=== PATIENT | female | born 1970 | race Two or more races ===

== ENCOUNTER 2020-12-10 09:41 | Outpatient (REF) | payer OTHER, SELFPAY ==
[2020-12-10 10:35] LABS: MANUAL DIFF FLAG NO
[2020-12-10 10:38] LABS: Basophils Absolute Auto 0.1 X10*3/uL (0.0-0.2); Basophils Percent Auto 0.6 % (0-2); Eosinophils Absolute Auto 0.2 X10*3/uL (0.0-0.4); Eosinophils Percent Auto 1.2 % (0-4); Hematocrit 44.5 % (37-47); Hemoglobin 15.3 g/dl (12.0-16.0); Imm Gran Abs Auto 0.06 X10*3/uL (0.00-0.03); Imm Gran Pct Auto 0.5 % (0.0-0.4); Lymphocytes Absolute Auto 3.4 X10*3/uL (1.2-4.9); Lymphocytes Percent Auto 27.6 % (20-40); Mean Corpuscular HGB Conc 34.4 g/dl (31.0-35.0); Mean Corpuscular Hemoglobin 33.3 pg (27.0-33.0); Mean Corpuscular Volume 96.9 fL (80-98); Mean Platelet Volume 9.5 fL (9.4-12.3); Monocytes Absolute Auto 0.6 X10*3/uL (0.1-1.2); Monocytes Percent Auto 5.2 % (2-11); Neutrophils Absolute Auto 8.1 X10*3/uL (2.0-8.3); Neutrophils Percent Auto 64.9 % (45-73); Platelet Count 300 X10*3/uL (160-400); Red Blood Count 4.59 X10*6/uL (4.20-5.50); Red Cell Distribution Width 12.8 % (11.0-16.0); White Blood Count 12.4 X10*3/uL (4.8-10.8)
[2020-12-10 11:21] LABS: Alanine Aminotransferase 15 U/L (0-31); Albumin Level 4.3 g/dL (3.5-5.0); Alkaline Phosphatase 91 U/L (39-117); Anion Gap 14 (12-20); Aspartate Amino Transferase 18 U/L (5-31); Bilirubin Total 0.6 mg/dL (0.0-1.0); Blood Urea Nitrogen 12 mg/dL (9-16); Calcium 8.7 mg/dL (8.4-10.2); Carbon Dioxide 25 mmol/L (22-29); Chloride 105 mmol/L (96-108); Cholesterol 283 mg/dL; Estimated Glomerular Filt Rate > 60; Glucose Fasting 90 mg/dL (60-99); HDL Cholesterol 58 mg/dL; LDL Cholesterol Calculated 214 mg/dl; Sodium 140 mmol/L (135-145); Total Protein 7.6 g/dL (6.5-8.0); Triglycerides 59 mg/dL
[2020-12-10 11:34] LABS: Thyroid Stimulating Hormone 2.88 uIU/mL (0.32-4.0)
== END 2020-12-10 09:42 | disposition home or self-care (01) ==
LOC: HO.LAB 09:41
PROVIDERS: PCP Internal Medicine; Visit Provider Internal Medicine
DX: Z00.00 Encounter for general adult medical examination without abnormal findings (principal); E03.9 Hypothyroidism, unspecified; E11.9 Type 2 diabetes mellitus without complications
CPT/HCPCS: 36415; 80053; 80061; 84443; 85025

== ENCOUNTER 2021-04-07 14:34 | Outpatient (REF) | payer OTHER, SELFPAY ==
--- NOTE | ~2021-04-07 | XR_ITS ---
EXAMINATION: XR LUMBAR SPINE XR LEFT KNEE CLINICAL INFORMATION: Spondylosis without myelopathy or radiculopathy. COMPARISON: Lumbar spine 01/27/2016. TECHNIQUE: 4 views lumbar spine, 3 views knee. FINDINGS: Lumbar Spine: Again seen are mild degenerative changes present throughout the lumbar spine with [id number] changes at L5-S1 with disc space narrowing and sclerosis. At other levels, there is milder disc space narrowing with some associated endplate changes. When comparison is made to the 2016 study, there has been no significant interval change. Knee: Tricompartmental degenerative changes are present which are worse in the lateral compartment with sclerosis and some osteophyte formation. There is mild narrowing medially and some mild osteophytes present at the superior aspect of the patella posteriorly. XR/XR lumbar spine 2-3V IMPRESSION: Degenerative changes lumbar spine, stable when compared to 2016 and mild tricompartmental degenerative changes knee.
--- NOTE | ~2021-04-07 | XR_ITS ---
EXAMINATION: XR LUMBAR SPINE XR LEFT KNEE CLINICAL INFORMATION: Spondylosis without myelopathy or radiculopathy. COMPARISON: Lumbar spine 01/27/2016. TECHNIQUE: 4 views lumbar spine, 3 views knee. FINDINGS: Lumbar Spine: Again seen are mild degenerative changes present throughout the lumbar spine with [id number] changes at L5-S1 with disc space narrowing and sclerosis. At other levels, there is milder disc space narrowing with some associated endplate changes. When comparison is made to the 2016 study, there has been no significant interval change. Knee: Tricompartmental degenerative changes are present which are worse in the lateral compartment with sclerosis and some osteophyte formation. There is mild narrowing medially and some mild osteophytes present at the superior aspect of the patella posteriorly. XR/XR knee LT 3V IMPRESSION: Degenerative changes lumbar spine, stable when compared to 2016 and mild tricompartmental degenerative changes knee.
[2021-04-07 16:58] LABS: Alanine Aminotransferase 14 U/L (0-31); Albumin Level 4.4 g/dL (3.5-5.0); Alkaline Phosphatase 93 U/L (39-117); Anion Gap 12 (12-20); Aspartate Amino Transferase 20 U/L (5-31); Bilirubin Total 0.7 mg/dL (0.0-1.0); Blood Urea Nitrogen 9 mg/dL (9-16); Calcium 9.8 mg/dL (8.4-10.2); Carbon Dioxide 25 mmol/L (22-29); Chloride 108 mmol/L (96-108); Estimated Glomerular Filt Rate > 60; Glucose Random 90 mg/dL (60-115); Potassium 4.1 mmol/L (3.3-5.1); Sodium 141 mmol/L (135-145); Total Protein 7.9 g/dL (6.5-8.0)
== END 2021-04-07 14:35 | disposition home or self-care (01) ==
LOC: HO.XRAY 14:34
PROVIDERS: PCP Internal Medicine; Visit Provider Student in an Organized Health Care Education/Training Program
DX: M25.562 Pain in left knee (principal); M47.816 Spondylosis without myelopathy or radiculopathy, lumbar region; M25.50 Pain in unspecified joint; F17.210 Nicotine dependence, cigarettes, uncomplicated; I10 Essential (primary) hypertension; B07.0 Plantar wart; Z79.899 Other long term (current) drug therapy
CPT/HCPCS: 36415; 72100; 73562; 80053; 99212

== ENCOUNTER 2021-04-09 14:53 | Emergency (ER) | payer OTHER, SELFPAY ==
[2021-04-09 15:41] VITALS: BP 188/96; PULSE 73; RESP 18; TEMP 36.9; O2SAT 98; BMI 27.4
== END 2021-04-09 19:58 | disposition left against medical advice (07) ==
PROVIDERS: Emergency Provider Emergency Medicine
DX: R51.9 Headache, unspecified (principal); I10 Essential (primary) hypertension
CPT/HCPCS: 99281; 99282

== ENCOUNTER 2021-12-08 07:03 | Inpatient (IN) | payer OTHER, SELFPAY ==
[2021-12-08] VITALS (15 sets, daily range): BP systolic 105–187; BP diastolic 54–91; PULSE 77–94; RESP 15–20; TEMP 36.7–37.1; O2SAT 83–99; BMI 30.7
--- NOTE | ~2021-12-08 | CT_ITS ---
EXAMINATION: CT ANGIOGRAM OF THE CHEST WITH AND WITHOUT CONTRAST (CT PULMONARY ANGIOGRAM FOR PE) CLINICAL INFORMATION: Reason for Exam hemoptysis, hypoxic, to evaluate for pulmonary emb COMPARISON: Chest x-ray December 2021 and March 29, 2019 TECHNIQUE: Prior to contrast administration, noncontrast localization images were obtained. Subsequently, multidetector volumetric imaging was performed from the thoracic inlet to below the diaphragms following the administration of 65 mL Omnipaque 350 intravenous contrast. No contrast reaction reported Sagittal, coronal, and MIP oblique sagittal reformatted images were obtained on the CT workstation, uploaded to PACS, and reviewed. This CT examination was performed using dose optimization techniques as appropriate, variously including the following: *Automated exposure control *Adjustment of mA and/or kV according to patient size (this includes techniques or standardized protocols for targeted exams where dose is matched to indication/reason for exam; i.e. extremities or head) *Use of iterative reconstruction technique Total exam dose-length product 169 mGy-cm FINDINGS: QUALITY OF STUDY/CONTRAST BOLUS: Satisfactory. PULMONARY ARTERIES: No central or segmental pulmonary emboli. THORACIC AORTA: No aneurysm or dissection. LUNG: The central airways are patent. No bronchial wall thickening is seen. No bronchiectasis. There is evidence of mild paraseptal and centrilobular emphysema about the upper lobes bilaterally. There is some dependent bibasilar disease, right greater than left likely related to atelectasis. Discoid atelectasis is noted within the right middle lobe and lingula. No confluent pneumonitis is appreciated. There are a few sub-4 mm nodules present. There is a 4 mm subpleural noncalcified nodule seen within the right middle lobe on image 342 of [id number]. PLEURA: No significant pleural effusion. No pneumothorax. MEDIASTINUM: Heart upper limits of normal in size. No pericardial effusion. No missed on lymphadenopathy is appreciated. There is a small right hilar lymph node measuring 1 cm in short axis. Visualized thyroid gland unremarkable. No evidence of septal bowing or right heart strain. CHEST WALL/AXILLA: No axillary or internal mammary lymphadenopathy. OSSEOUS STRUCTURES: No acute or suspicious osseous abnormality. UPPER ABDOMEN: Pneumobilia present. No reflux of contrast into the hepatic veins to suggest elevated right heart pressures. CT/CT angio chest PE protocol IMPRESSION: No evidence of acute pulmonary artery embolus. No evidence of thoracic aortic aneurysm or dissection. Mild changes of centrilobular and paraseptal emphysema within the upper lobes bilaterally. Probable mild right hilar lymphadenopathy. VTE: negative
--- NOTE | ~2021-12-08 | XR_ITS ---
EXAMINATION: XR CHEST CLINICAL INFORMATION: Asthma. Suspected COVID COMPARISON: Previous chest x-ray most recent February 2019 TECHNIQUE: Frontal view of the chest was obtained. FINDINGS: The cardiac silhouette appears slightly enlarged and may be increased in size compared to prior exam. Hilar and mediastinal contours are unremarkable. There is bilateral perihilar subsegmental atelectasis. The lungs are otherwise clear. There is no pleural effusion or pneumothorax. Bony structures are unremarkable. XR/XR chest 1V IMPRESSION: Enlarged cardiac silhouette which may be increased from prior exams. Bilateral perihilar subsegmental atelectasis.
--- NOTE | ~2021-12-08 | US_ITS ---
EXAMINATION: US VENOUS ULTRASOUND WITH DOPPLER LOWER EXTREMITY, RIGHT CLINICAL INFORMATION: Swelling COMPARISON: Previous exam May 2020 TECHNIQUE: Ultrasound of the deep veins is performed from the hip to the calf with compression sonography and color and pulse Doppler assessment. Spectral analysis with color-flow imaging is performed. FINDINGS: There is normal venous compression and respiratory variation and augmented flow. The visualized common femoral vein, superficial femoral vein, profunda femoral vein, popliteal vein, and the trifurcation region shows no evidence of deep venous thrombosis. There is no significant popliteal fossa cyst. US/US venous duplex LE RT IMPRESSION: No DVT demonstrated in the right lower extremity.
--- NOTE | 2021-12-08 07:15 | ECG_ITS ---
Test Reason : SOB Blood Pressure : / mmHG Vent. Rate : 087 BPM Atrial Rate : 087 BPM P-R Int : 178 ms QRS Dur : 138 ms QT Int : 428 ms P-R-T Axes : 061 041 080 degrees QTc Int : 515 ms Normal sinus rhythm Left bundle branch block Abnormal ECG When compared with ECG of 29-MAR-2019 13:08, Left bundle branch block is now Present Referred By: La Vasquez Electronically Signed By:Brennan Barnett
--- NOTE | 2021-12-08 07:17 | ED.SOB ---
HPI - SOB/Dyspnea General Chief Complaint: Dyspnea Stated Complaint: ASTHMA,-VACC Time Seen by Provider: 12/08/21 07:10 Source: patient and EMS Mode of arrival: EMS Limitations: no limitations History of Present Illness HPI Narrative: Patient comes to the emergency room complaining 3 days of asthma exacerbation. Patient states that for the last 6 hours she has been using multiple nebulization treatments without relief. EMS was called, oxygen saturation 89% on room air. Patient received 125 mg of Solu-Medrol, 2 g of magnesium, DuoNebs. Patient is not vaccinated for COVID-19 Related Data Previous Rx's Medication Instructions Recorded albuterol sulfate 2.5 mg (3 mL) INHALATION Q4-6H PRN 03/18/21 #75 ml simvastatin 40 mg tablet 40 mg PO DAILY #90 tab 03/18/21 albuterol sulfate 90 mcg/actuation 2 puff PO Q6H PRN #18 g 04/24/21 aerosol inhaler (ProAir HFA) fluticasone propionate 44 2 puff INHALATION BID 30 Days 08/05/21 mcg/actuation HFA aerosol inhaler #10.6 g (Flovent HFA) lisinopril 10 mg tablet 10 mg PO DAILY 90 Days #90 tab 08/05/21 omeprazole 20 mg capsule,delayed 20 mg PO DAILY 90 Days #90 cap 08/05/21 release escitalopram oxalate 10 mg tablet 10 mg PO DAILY #90 tab 11/01/21 Allergies Allergy/AdvReac Type Severity Reaction Status Date / Time Penicillins Allergy Intermediate DIFFICULTY Verified 12/08/21 07:18 BREATHING Review of Systems Review of Systems: Constitutional : No Weight loss, No Fever, No Chills, No Night Sweats, No Fatigue, No Malaise ENT/Mouth : No Hearing loss, No Ear Pain, No Nasal Congestion, No Sinus Pain, No Hoarseness, No sore throat, No Rhinorrhea, No Swallowing Difficulty Eyes: No Eye Pain, No Swelling, No Redness, No Foreign Body, No Discharge, No Vision Changes Cardiovascular : No Chest Pain, No SOB, No Dyspnea on Exertion, No Orthopnea, No Edema, No Palpitations Respiratory : Complaining of dry cough, shortness of breath, wheezing Gastrointestinal : No Nausea, No Vomiting, No Diarrhea, No Constipation, No abdominal Pain, No Hematochezia, No Melena Genitourinary : no irregular bleeding, No Dysuria, No Urinary Frequency, No Hematuria, No Urinary Incontinence, No Urgency, No Flank Pain, No Urinary Flow Changes, No Hesitancy Musculoskeletal : No joint pain, No Myalgias, No Joint Swelling Skin : No Skin Lesions, No rash Neuro : No Weakness, No Numbness, No Paresthesias, No Loss of Consciousness, No Dizziness, No Headache Psych : No Anxiety/Panic, No Depression, No SI/HI/AH/VH, No Social Issues, Heme/Lymph: No Bruising, No Bleeding,No Lymphadenopathy Endocrine : No Polyuria, No Polydipsia, No Temperature Intolerance FOR[facility]LY [facility] Past Medical History Medical History Allergic rhinitis Arthritis Asthma Chronic GERD Essential hypertension Hypertension Lumbar spondylosis Moderate persistent asthma, uncomplicated Moderate recurrent major depression Pure hypercholesterolemia Surgical History Hx of cholecystectomy Hx of hysterectomy Hx of tubal ligation Family History Family History Father Heart attack Mother Ovarian cancer Family/Other Substance use disorder Mental health disorder Social History Social History (Updated 08/05/21 @ 08:58 by Lisa Zazueta MD) Housing: Apartment Alcohol intake: current Alcohol intake frequency: holidays/special occasions only Alcohol type: beer Patient Tobacco Use Status: Current everyday Tobacco user Tobacco use type: Cigarette Cigarettes Per Day: 10 e-Cigarette/Vaping Use: Never Used Second Hand Smoke Exposure: No Use of substances other than those prescribed or required for medical reasons: No Advance Directives: No Advance Directives Information Provided: No service: No Current occupational status: disabled Physical Exam Vital Signs: Vital Signs: Last Vital Signs Temp 98.7 F 12/08/21 07:18 Pulse 94 12/08/21 09:12 Resp 18 12/08/21 09:12 BP 187/80 H 12/08/21 09:12 Pulse Ox 91 L 12/08/21 09:12 BMI result Body Mass Index 30.7 Const: Other: Appearance: Alert. Oriented X3. Mild to moderate distress difficulty breathing Eyes: Pupils equal, round and reactive to light. ENT: Pharynx normal. Neck: Normal inspection. Neck supple. No lymph nodes noted. No crepitus CVS: Normal heart rate and rhythm. Pulses normal. Normal S1 and S2 Respiratory: Bilateral wheezing, decreased breath sounds, decreased air movement, oxygen saturation 97% on 5 L, able to speak in short sentences Abdomen: Soft and nontender. No rigidity. No distention. Skin: Skin warm and dry. Normal skin color. Normal skin turgor. Extremities: No lower extremity edema. No lower extremity edema. No Lacerations. No Rash Neuro: Oriented X 3. No motor deficit. No sensory deficit. Moving all extermities. No slurred speech. Course Course Course Narrative: It was noted that patient has a new left bundle branch block, no reciprocal changes. Patient denies chest pain. Troponin is slightly bumped. Likely secondary to demand ischemia Patient walked to the bathroom, her oxygen dropped to 83% on room air. Patient is now on 4 L saturating at 92%. MDM - SOB/Dyspnea Lab Data Result diagrams: 12/08/21 07:50 12/08/21 07:50 Labs: Lab Results 12/08/21 12/08/21 12/08/21 Range/Units 07:50 07:50 07:50 WBC 10.1 (4.8-10.8) X10*3/uL RBC 4.14 L (4.20-5.50) X10*6/uL Hgb 13.4 (12.0-16.0) g/dl Hct 39.1 (37.0-47.0) % MCV 94.4 (80.0-98.0) fL MCH 32.4 (27.0-33.0) pg MCHC 34.3 (31.0-35.0) g/dl RDW 13.8 (11.0-16.0) % Plt Count 334 (160-400) X10*3/uL MPV 8.9 L (9.4-12.3) fL Immature Gran % (Auto) 0.8 H (0.0-0.4) % Neut % (Auto) 76.1 H (45-73) % Lymph % (Auto) 17.2 L (20-40) % [place] % (Auto) 3.7 (2-11) % Eos % (Auto) 1.5 (0-4) % Baso % (Auto) 0.7 (0-2) % Lymph # (Auto) 1.7 (1.2-4.9) X10*3/uL [place] # (Auto) 0.4 (0.1-1.2) X10*3/uL Eos # (Auto) 0.2 (0.0-0.4) X10*3/uL Baso # (Auto) 0.1 (0.0-0.2) X10*3/uL Abs Immat Gran (auto) 0.08 H (0.00-0.03) X10*3/uL Absolute Neuts (auto) 7.7 (2.0-8.3) x10*3/uL Absolute Nucleated RBC 0.000 (0.0-0.012) X10*3/uL Nucleated RBC % (auto) 0.0 (0.0-0.2) /100WBC Sodium 136 (135-145) mmol/L Potassium 4.1 (3.3-5.1) mmol/L Chloride 104 (96-108) mmol/L Carbon Dioxide 21 L (22-29) mmol/L Anion Gap 15 (12-20) BUN 13 (9-16) mg/dL Creatinine 0.75 (0.5-1.4) mg/dL Estim Creat Clear Calc 96.0 Estimated GFR > 60 Random Glucose 108 (60-115) mg/dL Calcium 8.8 D (8.4-10.2) mg/dL Total Bilirubin 0.5 (0.0-1.0) mg/dL Direct Bilirubin 0.2 (0.0-0.5) mg/dL AST 20 (5-31) U/L ALT 27 (0-31) U/L Alkaline Phosphatase 92 (39-117) U/L Troponin I High Sens (<3.5-17.0) ng/L Total Protein 7.4 (6.5-8.0) g/dL Albumin 4.3 (3.5-5.0) g/dL COVID-19 ([facility]) Negative (Negative) COVID-19 Clin Com See Note 12/08/21 Range/Units 07:50 WBC (4.8-10.8) X10*3/uL RBC (4.20-5.50) X10*6/uL Hgb (12.0-16.0) g/dl Hct (37.0-47.0) % MCV (80.0-98.0) fL MCH (27.0-33.0) pg MCHC (31.0-35.0) g/dl RDW (11.0-16.0) % Plt Count (160-400) X10*3/uL MPV (9.4-12.3) fL Immature Gran % (Auto) (0.0-0.4) % Neut % (Auto) (45-73) % Lymph % (Auto) (20-40) % [place] % (Auto) (2-11) % Eos % (Auto) (0-4) % Baso % (Auto) (0-2) % Lymph # (Auto) (1.2-4.9) X10*3/uL [place] # (Auto) (0.1-1.2) X10*3/uL Eos # (Auto) (0.0-0.4) X10*3/uL Baso # (Auto) (0.0-0.2) X10*3/uL Abs Immat Gran (auto) (0.00-0.03) X10*3/uL Absolute Neuts (auto) (2.0-8.3) x10*3/uL Absolute Nucleated RBC (0.0-0.012) X10*3/uL Nucleated RBC % (auto) (0.0-0.2) /100WBC Sodium (135-145) mmol/L Potassium (3.3-5.1) mmol/L Chloride (96-108) mmol/L Carbon Dioxide (22-29) mmol/L Anion Gap (12-20) BUN (9-16) mg/dL Creatinine (0.5-1.4) mg/dL Estim Creat Clear Calc Estimated GFR Random Glucose (60-115) mg/dL Calcium (8.4-10.2) mg/dL Total Bilirubin (0.0-1.0) mg/dL Direct Bilirubin (0.0-0.5) mg/dL AST (5-31) U/L ALT (0-31) U/L Alkaline Phosphatase (39-117) U/L Troponin I High Sens 18.3 H (<3.5-17.0) ng/L Total Protein (6.5-8.0) g/dL Albumin (3.5-5.0) g/dL COVID-19 ([facility]) (Negative) COVID-19 Clin Com Discharge Plan Discharge Clinical Impression: Asthma exacerbation Patient Disposition: Admitted As Inpatient
[2021-12-08] MEDS: 0.9 % Sodium Chloride 1,000 ML 999 ML IVCONT (07:30)
[2021-12-08 07:56] LABS: MANUAL DIFF FLAG NO
[2021-12-08 07:59] LABS: Basophils Absolute Auto 0.1 X10*3/uL (0.0-0.2); Basophils Percent Auto 0.7 % (0-2); Eosinophils Absolute Auto 0.2 X10*3/uL (0.0-0.4); Eosinophils Percent Auto 1.5 % (0-4); Hematocrit 39.1 % (37.0-47.0); Hemoglobin 13.4 g/dl (12.0-16.0); Imm Gran Abs Auto 0.08 X10*3/uL (0.00-0.03); Imm Gran Pct Auto 0.8 % (0.0-0.4); Lymphocytes Absolute Auto 1.7 X10*3/uL (1.2-4.9); Lymphocytes Percent Auto 17.2 % (20-40); Mean Corpuscular HGB Conc 34.3 g/dl (31.0-35.0); Mean Corpuscular Hemoglobin 32.4 pg (27.0-33.0); Mean Corpuscular Volume 94.4 fL (80.0-98.0); Mean Platelet Volume 8.9 fL (9.4-12.3); Monocytes Absolute Auto 0.4 X10*3/uL (0.1-1.2); Monocytes Percent Auto 3.7 % (2-11); Neutrophils Absolute Auto 7.7 x10*3/uL (2.0-8.3); Neutrophils Percent Auto 76.1 % (45-73); Platelet Count 334 X10*3/uL (160-400); Red Blood Count 4.14 X10*6/uL (4.20-5.50); Red Cell Distribution Width 13.8 % (11.0-16.0); White Blood Count 10.1 X10*3/uL (4.8-10.8)
[2021-12-08] MEDS: Albuterol Sulfate (0.083%) 2.5 MG/3 ML VIAL.NEB 10 MG INHALE ×2 (08:03→10:16)
[2021-12-08 08:14] LABS: COVID-19 Test Negative (Negative); IDNOW Serial# 9DD0AD1C
[2021-12-08 08:16] LABS: Alanine Aminotransferase 27 U/L (0-31); Albumin Level 4.3 g/dL (3.5-5.0); Alkaline Phosphatase 92 U/L (39-117); Anion Gap 15 (12-20); Aspartate Amino Transferase 20 U/L (5-31); Bilirubin Direct 0.2 mg/dL (0.0-0.5); Bilirubin Total 0.5 mg/dL (0.0-1.0); Blood Urea Nitrogen 13 mg/dL (9-16); Calcium 8.8 mg/dL (8.4-10.2); Carbon Dioxide 21 mmol/L (22-29); Chloride 104 mmol/L (96-108); Estimated Glomerular Filt Rate > 60; Glucose Random 108 mg/dL (60-115); Potassium 4.1 mmol/L (3.3-5.1); Sodium 136 mmol/L (135-145); Total Protein 7.4 g/dL (6.5-8.0)
[2021-12-08 08:23] LABS: Troponin-I High Sensitivity 18.3 ng/L (<3.5-17.0)
--- NOTE | 2021-12-08 08:53 | PC.NURSE ---
has been on updraft for aprix 30 minutes. reports feeling better.
--- NOTE | 2021-12-08 09:09 | PC.NURSE ---
Pt amublated to BR with urge incontinence w/o O2. became very SOB, weak, tachipnic, pursed lip breathing. WOB of breathing increased. was unable to recover w/o O2 on toilet. returned to bed with WC. room saO2 83%. recovering with 6L NC but slowly. denies CP since arrival
--- NOTE | 2021-12-08 09:12 | PC.NURSE ---
pt has slight non pitting edema BLE.
[2021-12-08 10:17] LABS: B Type Natriuretic Peptide 247 pg/mL (<100)
--- NOTE | 2021-12-08 10:19 | PHA.MEDREC ---
Pharmacy Consult ? Medication Reconciliation Pharmacy has completed the medication reconciliation. Patient states they still take simvastatin (last filled 02/2021). Thanks Meghna Curtis
[2021-12-08 10:30] LABS: Troponin-I High Sensitivity 21.6 ng/L (<3.5-17.0)
--- NOTE | 2021-12-08 10:50 | PM.IMHP ---
History of Present Illness Date of Service: 12/08/21 Chief Complaint: shortness of breath x 3 days This is a 51 yo Canadian Speaking F (history obtained with Canadian speaking team mental hygienist) with a PMH of moderate persistant asthma, allergic rhinitis, GERD, obesity, anxiety/depression, hypertsion who presents to the hospital with 3 days of progressive shortness of breath with despite the use of scheduled updrafts and inhalers every 4-6 hours at home. The patient reports that her symptoms began 3 days [employer] and were only mild at first, but now she reports shortness of breath and wheezing with minimal exertion. She reports intermittent non-productive cough. She reports no fevers or chills. She reports no known sick contacts, including COVID. She reports lower abdominal pain / pleuritic chest pain which began after severe coughing bouts. She reports substernal chest pain(unable to categorize it), severe in nature, lasting less than a minute with associated numbness on the night prior to arrival. She denies any current chest pain and denies anginal symptoms in the past. Upon arrival to the ED, the patient was noted to have respiratory distress and wheezing. She was given IV mag and IV solu-medrol in route to the ED. In the emergency room, she was given 2 rounds to continue Nebs but remained tachypneic with wheezing. She desaturated to 83% on room air post broncodilator therapy. Her EKG showed a new LBBB and HS trop-I of 18, followed by 21. COVID vaccination status: Unvaccinated Review of Systems Review of Systems: negative except HPI [facility] Medical History Allergic rhinitis Arthritis Asthma Chronic GERD Essential hypertension Hypertension Lumbar spondylosis Moderate persistent asthma, uncomplicated Moderate recurrent major depression Pure hypercholesterolemia Family History Father Heart attack Mother Ovarian cancer Family/Other Substance use disorder Mental health disorder Surgical History Hx of cholecystectomy Hx of hysterectomy Hx of tubal ligation Social History Housing: Apartment Alcohol intake: current Alcohol intake frequency: holidays/special occasions only Alcohol type: beer Patient Tobacco Use Status: Current everyday Tobacco user Tobacco use type: Cigarette Cigarettes Per Day: 10 e-Cigarette/Vaping Use: Never Used Second Hand Smoke Exposure: No Use of substances other than those prescribed or required for medical reasons: No Advance Directives: No Advance Directives Information Provided: No service: No Current occupational status: disabled Meds Allergies Allergy/AdvReac Type Severity Reaction Status Date / Time Penicillins Allergy Intermediate DIFFICULTY Verified 12/08/21 07:18 BREATHING Active Medications: Current Medications Acetaminophen (Acetaminophen 325 Mg Tablet) 650 mg PO Q6H PRN PRN Reason: Pain, Mild (Pain Scale 1-3) Enoxaparin Sodium (Enoxaparin Sodium 40 Mg/0.4 Ml Syringe) 40 mg SUBCUT Q24H GUILHERME Escitalopram Oxalate (Escitalopram Oxalate 10 Mg Tablet) 10 mg PO DAILY GUILHERME Lisinopril (Lisinopril 10 Mg Tablet) 10 mg PO DAILY [facility]; Protocol Non-Formulary Medication (Simvastatin) 40 mg PO BEDTIME GUILHERME Omeprazole (Omeprazole 20 Mg Capsule.Dr) 20 mg PO DAILY [facility] Ondansetron HCl (Ondansetron Hcl 4 Mg/2 Ml Vial) 4 mg IVPUSH Q8H PRN PRN Reason: Nausea and Vomiting Pharmacy Consult (Consult Rx Perform Med Rec) 1 each MISCELLANE ONCE PRN PRN Reason: Consult order Sodium Chloride (0.9 % Sodium Chloride Flush 3 Ml Syringe) 3 ml IVFLUSH QSHIFT [facility] Home Medications Medication Instructions Recorded Confirmed Last Taken Type simvastatin 40 mg tablet 40 mg PO BEDTIME 12/08/21 12/08/21 12/07/21 History Physical Exam Vital Signs and Narrative: Vital Signs: Last Vital Signs Temp 98.2 F 12/08/21 09:50 Pulse 77 12/08/21 10:17 Resp 18 12/08/21 10:17 BP 144/71 H 12/08/21 09:50 Pulse Ox 96 12/08/21 09:50 BMI result Body Mass Index 30.7 Const: Other: Constitutional - Awake and alert, comfortable at rest, but tachypnea with min exertion Eyes - PERRLA, EOMI Cardiovascular - S1S2, RRR, 1+ bilateral LE edema Respiratory - Poor air entry globally; saturations 83% on RA, improved to low/mid 90s on 4L Gastrointestinal - NT / ND; +BS; No rebound or guarding - No CVA tenderness Extremities - no calf tenderness bilaterally Musculoskeletal - Normal inspection, normal ROM Skin - Warm/Dry Neurological - Alert & oriented x3, No focal deficit Psychological - Appropriate affect Results Labs CBC and Chem 7: 12/08/21 07:50 12/08/21 07:50 Labs: Laboratory Results - last 24 hr 12/08/21 12/08/21 12/08/21 07:50 07:50 07:50 MCV 94.4 MCH 32.4 MCHC 34.3 RDW 13.8 Plt Count 334 MPV 8.9 L Immature Gran % (Auto) 0.8 H Neut % (Auto) 76.1 H Lymph % (Auto) 17.2 L [place] % (Auto) 3.7 Eos % (Auto) 1.5 Baso % (Auto) 0.7 Lymph # (Auto) 1.7 [place] # (Auto) 0.4 Eos # (Auto) 0.2 Baso # (Auto) 0.1 Abs Immat Gran (auto) 0.08 H Absolute Neuts (auto) 7.7 Absolute Nucleated RBC 0.000 Nucleated RBC % (auto) 0.0 Anion Gap 15 Estim Creat Clear Calc 96.0 Estimated GFR > 60 Random Glucose 108 Calcium 8.8 D Total Bilirubin 0.5 Direct Bilirubin 0.2 AST 20 ALT 27 Alkaline Phosphatase 92 B-Natriuretic Peptide Total Protein 7.4 Albumin 4.3 COVID-19 ([facility]) Negative COVID-19 Clin Com See Note 12/08/21 07:50 MCV MCH MCHC RDW Plt Count MPV Immature Gran % (Auto) Neut % (Auto) Lymph % (Auto) [place] % (Auto) Eos % (Auto) Baso % (Auto) Lymph # (Auto) [place] # (Auto) Eos # (Auto) Baso # (Auto) Abs Immat Gran (auto) Absolute Neuts (auto) Absolute Nucleated RBC Nucleated RBC % (auto) Anion Gap Estim Creat Clear Calc Estimated GFR Random Glucose Calcium Total Bilirubin Direct Bilirubin AST ALT Alkaline Phosphatase B-Natriuretic Peptide 247 H Total Protein Albumin COVID-19 ([facility]) COVID-19 Clin Com Imaging Radiologist's Impressions: Impressions Chest X-Ray 12/08/21 07:45 IMPRESSION: Enlarged cardiac silhouette which may be increased from prior exams. Bilateral perihilar subsegmental atelectasis. Assessment and Plan (1) Asthma exacerbation: Status: Acute (2) Acute respiratory failure with hypoxia: Status: Acute Plan This is a 51 yo Canadian Speaking F (history obtained with Canadian speaking team mental hygienist) with a PMH of moderate persistant asthma, allergic rhinitis, GERD, obesity, anxiety/depression, hypertsion, HLD who presents to the hospital with 3 days of progressive shortness of breath with despite the use of scheduled updrafts and inhalers every 4-6 hours at home. She will be admitted for futher treatment. 1. Acute Hypoxic Respiratory Failure - Due to acute exacerbation of moderate persistent asthma Continue oxygen supplementation - 4L by NC IV solu-medrol 60mg q6 hours Scheduled and PRN Bronchodilators 2. Elevated HS trop-I / New LBBB / Elevated BNP Had some chest pain prior to arrival, which has resolved. Despite the use of a Canadian speaking mental hygienist, the patient is not fully able to characterize this pain. She reports no active chest pain 1 dose Asa given Will check Echo and Consult cardiology Risk factors include -- HTN, HLD, Obesity, Smoking, Family history of premature CAD (reports [place] in father in 40s) 3. HTN presented with BP > 180 systolic start her home lisinopril and uptitrate 4. HLD statin 5. GERD PPI 6. Anxiety/Depression Lexapro Full Code DVT pptx, Lovenox Quality Stroke Does the patient have a stroke diagnosis?: No VTE Prior VTE?: No VTE Risk Level:: Medical - moderate - high VTE Device Contraindication: Treatment Not Indicated VTE Drug Contraindication: N/A - Med Ordered
[2021-12-08] MEDS: Aspirin 81 MG TAB.CHEW 324 MG PO (11:03)
[2021-12-08] MEDS: Enoxaparin Sodium 40 MG/0.4 ML SYRINGE SUBCUT (11:03)
[2021-12-08] MEDS: methylPREDNISolone Sod Succ 125 MG/2 ML VIAL 60 MG IVPUSH ×2 (13:08→21:17)
[2021-12-08] MEDS: Omeprazole 20 MG CAPSULE.DR PO (13:09)
[2021-12-08] MEDS: Escitalopram Oxalate 10 MG TABLET PO (13:09)
--- NOTE | 2021-12-08 13:12 | PM.CNCAR ---
History of Present Illness History of Present Illness Date of Service: 12/08/21 Chief complaint: SOB, LBBB Narrative: Pleasant 51-year-old female with background history of asthma presenting for 3 days history of shortness of breath and asthma exacerbation. She has noticed to have new left bundle-branch block. Denying any chest discomfort. She is saying breathing is improving with asthma treatment. Strong family history of coronary artery disease and stroke. [facility] Past Medical History Medical History Allergic rhinitis Arthritis Asthma Chronic GERD Essential hypertension Hypertension Lumbar spondylosis Moderate persistent asthma, uncomplicated Moderate recurrent major depression Pure hypercholesterolemia Family History Family History Father Heart attack Mother Ovarian cancer Family/Other Substance use disorder Mental health disorder Surgical History Surgical History Hx of cholecystectomy Hx of hysterectomy Hx of tubal ligation Social History Social History Housing: Apartment Alcohol intake: current Alcohol intake frequency: holidays/special occasions only Alcohol type: beer Patient Tobacco Use Status: Current everyday Tobacco user Tobacco use type: Cigarette Cigarettes Per Day: 10 e-Cigarette/Vaping Use: Never Used Second Hand Smoke Exposure: No Use of substances other than those prescribed or required for medical reasons: No Advance Directives: No Advance Directives Information Provided: No service: No Current occupational status: disabled Meds Allergies Allergy/AdvReac Type Severity Reaction Status Date / Time Penicillins Allergy Intermediate DIFFICULTY Verified 12/08/21 07:18 BREATHING Active Medications: Current Medications Acetaminophen (Acetaminophen 325 Mg Tablet) 650 mg PO Q6H PRN PRN Reason: Pain, Mild (Pain Scale 1-3) Albuterol/Ipratropium (Albuterol/Iprat 2.5/0.5mg 3 Ml Ampul.Neb) 3 ml INHALE RQ6H WHILE AWAKE [facility] Atorvastatin Calcium (Atorvastatin Calcium 20 Mg Tablet) 20 mg PO BEDTIME GUILHERME Enoxaparin Sodium (Enoxaparin Sodium 40 Mg/0.4 Ml Syringe) 40 mg SUBCUT Q24H GUILHERME Last Admin: 12/08/21 11:03 Dose: 40 mg Documented by: Escitalopram Oxalate (Escitalopram Oxalate 10 Mg Tablet) 10 mg PO DAILY GUILHERME Lisinopril (Lisinopril 10 Mg Tablet) 10 mg PO DAILY [facility]; Protocol Methylprednisolone Sodium Succinate (Methylprednisolone Sod Succ 125 Mg/2 Ml Vial) 60 mg IVPUSH Q8H GUILHERME Omeprazole (Omeprazole 20 Mg Capsule.Dr) 20 mg PO DAILY@0630 [facility] Ondansetron HCl (Ondansetron Hcl 4 Mg/2 Ml Vial) 4 mg IVPUSH Q8H PRN PRN Reason: Nausea and Vomiting Pharmacy Consult (Consult Rx Perform Med Rec) 1 each MISCELLANE ONCE PRN PRN Reason: Consult order Sodium Chloride (0.9 % Sodium Chloride Flush 3 Ml Syringe) 3 ml IVFLUSH QSHIFT [facility] Home Medications Medication Instructions Recorded Confirmed Last Taken Type simvastatin 40 mg tablet 40 mg PO BEDTIME 12/08/21 12/08/21 12/07/21 History Physical Exam Vital Signs: Vital Signs: Last Vital Signs Temp 98.5 F 12/08/21 12:17 Pulse 88 12/08/21 12:17 Resp 15 12/08/21 12:17 BP 125/59 L 12/08/21 12:17 Pulse Ox 97 12/08/21 12:17 BMI result Body Mass Index 30.7 GENERAL APPEARANCE: in no acute distress, pleasant. NECK: no carotid bruit, mild jugular venous distention. SKIN: no suspicious lesions, warm and dry. HEART: no murmurs, regular rate and rhythm. LUNGS: No wheezes. Few crackles left base. ABDOMEN: soft, nontender. EXTREMITIES: no edema. PERIPHERAL PULSES: equal. NEUROLOGIC: No gross deficits, AAO X 3 Objective Labs and Meds Result diagrams: 12/08/21 07:50 12/08/21 07:50 Lab results: Laboratory Results - last 24 hr 12/08/21 12/08/21 12/08/21 07:50 07:50 07:50 WBC 10.1 RBC 4.14 L Hgb 13.4 Hct 39.1 MCV 94.4 MCH 32.4 MCHC 34.3 RDW 13.8 Plt Count 334 MPV 8.9 L Immature Gran % (Auto) 0.8 H Neut % (Auto) 76.1 H Lymph % (Auto) 17.2 L Bowie % (Auto) 3.7 Eos % (Auto) 1.5 Baso % (Auto) 0.7 Lymph # (Auto) 1.7 Bowie # (Auto) 0.4 Eos # (Auto) 0.2 Baso # (Auto) 0.1 Abs Immat Gran (auto) 0.08 H Absolute Neuts (auto) 7.7 Absolute Nucleated RBC 0.000 Nucleated RBC % (auto) 0.0 Sodium 136 Potassium 4.1 Chloride 104 Carbon Dioxide 21 L Anion Gap 15 BUN 13 Creatinine 0.75 Estim Creat Clear Calc 96.0 Estimated GFR > 60 Random Glucose 108 Calcium 8.8 D Total Bilirubin 0.5 Direct Bilirubin 0.2 AST 20 ALT 27 Alkaline Phosphatase 92 Troponin I High Sens B-Natriuretic Peptide Total Protein 7.4 Albumin 4.3 COVID-19 ([facility]) Negative COVID-19 Clin Com See Note 12/08/21 12/08/21 07:50 10:00 WBC RBC Hgb Hct MCV MCH MCHC RDW Plt Count MPV Immature Gran % (Auto) Neut % (Auto) Lymph % (Auto) Bowie % (Auto) Eos % (Auto) Baso % (Auto) Lymph # (Auto) Bowie # (Auto) Eos # (Auto) Baso # (Auto) Abs Immat Gran (auto) Absolute Neuts (auto) Absolute Nucleated RBC Nucleated RBC % (auto) Sodium Potassium Chloride Carbon Dioxide Anion Gap BUN Creatinine Estim Creat Clear Calc Estimated GFR Random Glucose Calcium Total Bilirubin Direct Bilirubin AST ALT Alkaline Phosphatase Troponin I High Sens 18.3 H 21.6 H B-Natriuretic Peptide 247 H Total Protein Albumin COVID-19 ([facility]) COVID-19 Clin Com Imaging Radiologist's impression: Impressions Chest X-Ray 12/08/21 07:45 IMPRESSION: Enlarged cardiac silhouette which may be increased from prior exams. Bilateral perihilar subsegmental atelectasis. Assessment and Plan (1) Left bundle branch block: Status: Acute Plan Pleasant 51 year female here for asthma exacerbation. She is noted to have new left bundle-branch block. Last comparison is from February 2019. She has no chest pain or pressure right now. Presentations clearly is due to asthma. Blood pressure is good. She needs echocardiography to assess for any LV dysfunction. She has family history of coronary artery disease as well as stroke. We will follow along with you. Thank you for allowing me to participate in the care of your patient. Please feel free to contact me if you have any questions. Procedures Date of Service Date of Service: 12/08/21
--- NOTE | 2021-12-08 13:36 | ECG_ITS ---
Test Reason : asthma Blood Pressure : / mmHG Vent. Rate : 088 BPM Atrial Rate : 088 BPM P-R Int : 182 ms QRS Dur : 142 ms QT Int : 454 ms P-R-T Axes : 063 018 095 degrees QTc Int : 549 ms Normal sinus rhythm Left bundle branch block Abnormal ECG When compared with ECG of 08-DEC-2021 07:36, No significant change was found Referred By: Generic ED Physician Electronically Signed By:Brennan Barnett
--- NOTE | 2021-12-08 17:11 | PC.NURSE ---
report given to imc rn
[2021-12-08] MEDS: 0.9 % Sodium Chloride Flush 3 ML SYRINGE IVFLUSH (17:54)
[2021-12-08] MEDS: Albuterol/Iprat 2.5/0.5MG 3 ML AMPUL.NEB INHALE (20:50)
[2021-12-08] MEDS: Acetaminophen 325 MG TABLET 650 MG PO (21:17)
[2021-12-08] MEDS: Atorvastatin Calcium 20 MG TABLET PO (21:18)
[2021-12-08] MEDS: lisinopriL 10 MG TABLET PO (21:18)
[2021-12-09] VITALS (9 sets, daily range): BP systolic 118–174; BP diastolic 57–89; PULSE 77–93; RESP 16–20; TEMP 36.4–37; O2SAT 93–97
[2021-12-09] MEDS: methylPREDNISolone Sod Succ 125 MG/2 ML VIAL 60 MG IVPUSH ×3 (03:51→20:00)
[2021-12-09] MEDS: 0.9 % Sodium Chloride Flush 3 ML SYRINGE IVFLUSH ×4 (03:54→20:00)
[2021-12-09] MEDS: Omeprazole 20 MG CAPSULE.DR PO (05:22)
[2021-12-09 06:51] LABS: Hematocrit 36.4 % (37.0-47.0); Hemoglobin 12.2 g/dl (12.0-16.0); Mean Corpuscular HGB Conc 33.5 g/dl (31.0-35.0); Mean Corpuscular Hemoglobin 32.3 pg (27.0-33.0); Mean Corpuscular Volume 96.3 fL (80.0-98.0); Mean Platelet Volume 9.3 fL (9.4-12.3); Platelet Count 286 X10*3/uL (160-400); Red Blood Count 3.78 X10*6/uL (4.20-5.50); Red Cell Distribution Width 14.1 % (11.0-16.0); White Blood Count 14.8 X10*3/uL (4.8-10.8)
[2021-12-09 07:06] LABS: Anion Gap 11 (12-20); Blood Urea Nitrogen 16 mg/dL (9-16); Calcium 8.9 mg/dL (8.4-10.2); Carbon Dioxide 23 mmol/L (22-29); Chloride 107 mmol/L (96-108); Estimated Glomerular Filt Rate > 60; Glucose Random 147 mg/dL (60-115); Potassium 4.3 mmol/L (3.3-5.1); Sodium 137 mmol/L (135-145)
--- NOTE | 2021-12-09 07:30 | CA_ITS ---
Transthoracic Echocardiogram Patient (Last, First, Middle): Kaity Jj, Gender: Female Date of : 1970 Age: 51 Procedure Date: 12/09/2021 Procedure Type: Transthoracic Echocardiogram Location: [facility] [place] Height: 165.1 cm Weight: 83.92 kg BSA: 1.91 m2 Heart Rate: bpm BP: 152 / 75 mmHg Methods Time Analyst: XENIA Referring MD: Christian Shah MD Symptoms: new LBBB, chest pain, elevated trop, eval for RWMA Study Quality: Fair Conclusions: - Normal left ventricular size and systolic function. There is mildly increased left ventricular wall thickness. The visually estimated ejection fraction is between 55-60%. - Mildly increased right ventricular cavity size. There is normal right ventricular systolic function. - The left atrium is severely dilated. - There is mild aortic valve stenosis. - There is moderate MR. - Significantly elevated right atrial pressure. Severe pulmonary hypertension is present. Findings Left Ventricle Normal left ventricular size and systolic function. There is mildly increased left ventricular wall thickness. The visually estimated ejection fraction is between 55-60%. There is no evidence of regional wall motion abnormalities. Diastolic function is indeterminate on the basis of available data. Right Ventricle Mildly increased right ventricular cavity size. There is normal right ventricular systolic function. Atria The left atrium is severely dilated. The right atrium is mildly dilated. Aortic Valve There is a normal trileaflet aortic valve. There is mild thickening of the aortic valve. There is mild aortic valve stenosis. The peak aortic velocity is 2.04 m/s. There is no aortic valve regurgitation. Mitral Valve There is mild anterior and posterior mitral leaflet thickening. There is no mitral valve stenosis. Apical tethering of the mitral valve leaflets with somewhat restricted posterior mitral valve leaflet. There is moderate MR. Pulmonic Valve The pulmonic valve is likely normal. Tricuspid Valve Normal tricuspid valve structure and function. There is trace tricuspid valve regurgitation. Significantly elevated right atrial pressure. Severe pulmonary hypertension is present. Great Vessels All visible segments of the aorta are normal in size. The pulmonary artery was not well visualized. Venous The inferior vena cava is dilated and collapses less than 50% with inspiration. Pericardium/Pleural There is no evidence of pericardial effusion. Prior Study Comparison No prior study available for comparison. Measurements 2D Linear Measurements IVSd: 1.07 0.6-0.9/0.6-1.0 cm LVIDd: 5.48 3.9-5.3/4.2-5.9 cm LVIDd Index: 2.87 2.4-3.2/2.2-3.1 cm/m2 LVIDs: 3.43 2.0-3.6 cm LVPWd: 1.06 0.7-1.1 cm Ao Root: 2.80 2.1-3.5 cm LA Diam: 4.50 2.7-3.8/3.0-4.0 cm LAIDs Index: 2.36 1.5-2.3 cm/m2 LV Mass: 287.19 67-162/88-224 g LV Mass Index: 150.36 43-95/49-115 g/m2 LVOT Diam: 2.00 3.0+(-)1.3 cm 2D Systolic Function EF 4C: 56.30 >55% EF 2C: 54.80 >55% EF BiP: 54.90 >55% Mitral Valve MV VTI: 0.45 MV Pk Donny: 1.88 MV Mn Donny: 1.24 MV Pk Grad: 14.00 MV Mn Grad: 7.00 MV Pk E: 1.61 MV PK A: 1.35 MV Decel Time: 127.00 E/A: 1.20 E'Lateral: 8.49 E'Medial: 9.36 E/E' Med: 17.20 E/E' Lat: 19.00 PHT: 111.00 MVA PHT: 1.98 MVA Continuity: 1.77 Decel [place]: 4.96 MR Vol - PW Dopp: 40.32 MR VTI: 1.68 MR ERO: 24.00 MR Alias Donny: 0.43 MR RAD: 0.70 Aortic Valve AoV Pk Donny: 2.04 AoV Mn Donny: 1.26 AoV VTI: 0.36 AoV Pk Grad: 17.00 Aov Mn Grad: 7.00 SHANTELLE Cont.VTI: 2.21 LVOT LVOT Pk Donny: 1.29 LVOT Mn Donny: 0.93 LVOT VTI: 0.26 LVOT Pk Grad: 7.00 LVOT Mn Grad: 4.00 LVOT Diam: 2.00 LVOT Area: 3.14 Diastolic Function MV Pk E: 1.61 MV Pk A: 1.35 E/A: 1.20 E'Medial: 9.36 E/E' Med: 17.20 E' Laterial: 8.49 E/E' Lat: 19.00 Right Ventricle TAPSE (mm): 29.00 TVS' Donny: 12.80 Tricuspid Valve TR Pk Donny: 3.35 TR Pk Grad: 45.00 RA Press: 15.00 RVSP: 60.00 Great Vessels Aorta Ao Root-2D: 2.80 2.0-3.7 cm Ao Asc: 2.60 2.1-3.4 cm Ao Arch: 3.00 Updated in Other Vendor System with Status of Final Brennan Barnett MD electronically signed on 12/09/2021 9:24:52 AM with status of Final
[2021-12-09] MEDS: Albuterol/Iprat 2.5/0.5MG 3 ML AMPUL.NEB INHALE ×3 (07:53→20:18)
--- NOTE | 2021-12-09 09:17 | MHC.CM.PN ---
CM spoke with Patient over the phone with the assist of a Italian Telephonic Sample Paster. Patient lives alone in an apartment and used no DME VP [employer]. Home no services is the goal for dc and CM has initiated and will follow for dc planning. Patient's Daughter/Joyce at [phone] is Patient's HCP and PCP is Dr. Lisa Alvarez. Patient has not received any Covid vaccinations.
[2021-12-09] MEDS: lisinopriL 10 MG TABLET PO ×2 (09:39→11:03)
[2021-12-09] MEDS: Escitalopram Oxalate 10 MG TABLET PO (09:39)
[2021-12-09] MEDS: Acetaminophen 325 MG TABLET 650 MG PO ×3 (09:40→23:11)
[2021-12-09] MEDS: Enoxaparin Sodium 40 MG/0.4 ML SYRINGE SUBCUT (09:41)
--- NOTE | 2021-12-09 10:17 | HO.PM.IMPN ---
Subjective Subjective Date of Service: 12/09/21 Interval History: seen and examined this AM feeling better compared to yesterday less SOB and wheezy, but still has ZHANG denies chest pain Review of Systems negative except HPI Physical Exam Vital Signs: Vital Signs: Last Vital Signs Temp 98.4 F 12/09/21 07:33 Pulse 78 12/09/21 07:55 Resp 16 12/09/21 07:55 BP 145/73 H 12/09/21 07:33 Pulse Ox 94 12/09/21 07:33 BMI result Body Mass Index 30.7 Const: Other: General - no acute distress, appears comfortable Cardiovascular - regular rate and rhythm, S1-S2 Lungs - air entry remains dimished bilaterally; with scattered wheezing Abdomen - soft, nontender, no rebound or guarding Extremities - no edema bilaterally Neuro - awake and alert, no focal deficits Objective Data Active Medications Acetaminophen (Acetaminophen 325 Mg Tablet) 650 mg PO Q6H PRN PRN Reason: Pain, Mild (Pain Scale 1-3) Last Admin: 12/09/21 09:40 Dose: 650 mg Documented by: JUAN FRANCISCO Albuterol/Ipratropium (Albuterol/Iprat 2.5/0.5mg 3 Ml Ampul.Neb) 3 ml INHALE RQ6H WHILE AWAKE [facility] Last Admin: 12/09/21 07:53 Dose: 3 ml Documented by: SRINIVASA Atorvastatin Calcium (Atorvastatin Calcium 20 Mg Tablet) 20 mg PO BEDTIME GUILHERME Last Admin: 12/08/21 21:18 Dose: 20 mg Documented by: YIFAN Enoxaparin Sodium (Enoxaparin Sodium 40 Mg/0.4 Ml Syringe) 40 mg SUBCUT Q24H [facility] Last Admin: 12/09/21 09:41 Dose: 40 mg Documented by: JUAN FRANCISCO Escitalopram Oxalate (Escitalopram Oxalate 10 Mg Tablet) 10 mg PO DAILY [facility] Last Admin: 12/09/21 09:39 Dose: 10 mg Documented by: JUAN FRANCISCO Lisinopril (Lisinopril 10 Mg Tablet) 10 mg PO DAILY [facility]; Protocol Last Admin: 12/09/21 09:39 Dose: 10 mg Documented by: JUAN FRANCISCO Methylprednisolone Sodium Succinate (Methylprednisolone Sod Succ 125 Mg/2 Ml Vial) 60 mg IVPUSH Q8H [facility]ILHERME Stop: 12/09/21 11:00 Last Admin: 12/09/21 10:15 Dose: 60 mg Documented by: JUAN FRANCISCO Methylprednisolone Sodium Succinate (Methylprednisolone Sod Succ 125 Mg/2 Ml Vial) 60 mg IVPUSH BID [facility] Omeprazole (Omeprazole 20 Mg Capsule.) 20 mg PO DAILY@0630 [facility] Last Admin: 12/09/21 05:22 Dose: 20 mg Documented by: YIFAN Ondansetron HCl (Ondansetron Hcl 4 Mg/2 Ml Vial) 4 mg IVPUSH Q8H PRN PRN Reason: Nausea and Vomiting Pharmacy Consult (Consult Rx Perform Med Rec) 1 each MISCELLANE ONCE PRN PRN Reason: Consult order Sodium Chloride (0.9 % Sodium Chloride Flush 3 Ml Syringe) 3 ml IVFLUSH QSHIFT [facility] Last Admin: 12/09/21 09:39 Dose: 3 ml Documented by: JUAN FRANCISCO Labs CBC & Chem 7: 12/09/21 06:41 12/09/21 06:41 Labs: Laboratory Results - last 24 hr 12/08/21 12/09/21 12/09/21 07:50 06:41 06:41 MCV 96.3 MCH 32.3 MCHC 33.5 RDW 14.1 Plt Count 286 MPV 9.3 L Absolute Nucleated RBC 0.000 Nucleated RBC % (auto) 0.0 Anion Gap 11 L Estim Creat Clear Calc 100.0 Estimated GFR > 60 Random Glucose 147 H Calcium 8.9 B-Natriuretic Peptide 247 H Assessment and Plan (1) Acute respiratory failure with hypoxia: Status: Acute (2) Asthma exacerbation: Status: Acute Plan This is a 51 yo Thai Speaking F (history obtained with Thai speaking team manager construction) with a PMH of moderate persistant asthma, allergic rhinitis, GERD, obesity, anxiety/depression, hypertsion, HLD who presents to the hospital with 3 days of progressive shortness of breath with despite the use of scheduled updrafts and inhalers every 4-6 hours at home. She will be admitted for futher treatment. 1. Acute Hypoxic Respiratory Failure - Due to acute exacerbation of moderate persistent asthma slowly improving, down to 2L by NC now Taper IV solu-medrol from q6 to q12h Scheduled and PRN Bronchodilators 2. Elevated HS trop-I / New LBBB / Elevated BNP HS trop-I Flat cardiology input apprecaited Echo completed -- showing normal LVEF, but evidence of severe pulm HTN -- will discuss the significance of these findings with cardiology 3. HTN not at ideal control increase lisinopril from 10mg to 20mg 4. HLD statin 5. GERD PPI 6. Anxiety/Depression Lexapro Full Code DVT pptx, Lovenox Quality Stroke Does the patient have a stroke diagnosis?: No VTE Prior VTE?: No VTE Risk Level:: Medical - moderate - high VTE Device Contraindication: Treatment Not Indicated VTE Drug Contraindication: N/A - Med Ordered
[2021-12-09] MEDS: iohexoL 350 MG/ML 75 ML INFUS..BTL 65 ML IV (12:38)
--- NOTE | 2021-12-09 18:20 | PM.PNCARD ---
Subjective Subjective Date of Service: 12/09/21 Interval history: Still short of breath and hypoxic. Complaining of orthopnea. Echocardiography has shown severe pulmonary hypertension and moderate mitral valve regurgitation. She also has some mild hemoptysis. She had a 9 hour flight recently. Physical Exam Vital Signs: Last Vital Signs Temp 97.5 F 12/09/21 15:06 Pulse 89 12/09/21 15:06 Resp 20 12/09/21 15:06 BP 174/88 H 12/09/21 15:06 Pulse Ox 97 12/09/21 15:06 BMI result Body Mass Index 30.7 GENERAL APPEARANCE: in no acute distress, pleasant. NECK: no carotid bruit, mild jugular venous distention. +HJR SKIN: no suspicious lesions, warm and dry. HEART: no murmurs, regular rate and rhythm. LUNGS:? No wheezes.? Few crackles left base. ABDOMEN: soft, nontender. EXTREMITIES: no edema. PERIPHERAL PULSES: equal. NEUROLOGIC: No gross deficits, AAO X 3 Objective Labs and Meds Result diagrams: 12/09/21 06:41 12/09/21 06:41 Lab results: Laboratory Results - last 24 hr 12/09/21 12/09/21 06:41 06:41 WBC 14.8 H RBC 3.78 L Hgb 12.2 Hct 36.4 L MCV 96.3 MCH 32.3 MCHC 33.5 RDW 14.1 Plt Count 286 MPV 9.3 L Absolute Nucleated RBC 0.000 Nucleated RBC % (auto) 0.0 Sodium 137 Potassium 4.3 Chloride 107 Carbon Dioxide 23 Anion Gap 11 L BUN 16 Creatinine 0.72 Estim Creat Clear Calc 100.0 Estimated GFR > 60 Random Glucose 147 H Calcium 8.9 Imaging Radiologist's impression: Impressions Chest CTA 12/09/21 12:36 IMPRESSION: No evidence of acute pulmonary artery embolus. No evidence of thoracic aortic aneurysm or dissection. Mild changes of centrilobular and paraseptal emphysema within the upper lobes bilaterally. Probable mild right hilar lymphadenopathy. VTE: negative Venous Duplex 12/09/21 14:30 IMPRESSION: No DVT demonstrated in the right lower extremity. Progress Note: A&P Assessment and plan (1) Left bundle branch block: Status: Acute (2) Essential hypertension: Status: Acute (3) Acute diastolic (congestive) heart failure: Status: Acute Plan 51-year-old female who presented with asthma exacerbation. She had left bundle-branch block which is new. Echocardiography has shown moderate mitral valve regurgitation. The valve appears abnormal and I think it can be related to previous exposure to weight loss drugs. He also has severe pulmonary hypertension. Clinically volume overloaded. I will start or on some IV diuretics. Will titrate antihypertensive therapy. Would not give her any beta-ren right now. She also had some mild hemoptysis and severe pulmonary hypertension on echocardiography. Recent air travel of 9 hours. I think we have to rule out pulmonary embolism. Thank you for allowing me to participate in the care of your patient. Please feel free to contact me if you have any questions. Fall Risk Details Current Medications: Current Medications Acetaminophen (Acetaminophen 325 Mg Tablet) 650 mg PO Q6H PRN PRN Reason: Pain, Mild (Pain Scale 1-3) Last Admin: 12/09/21 16:23 Dose: 650 mg Documented by: Albuterol/Ipratropium (Albuterol/Iprat 2.5/0.5mg 3 Ml Ampul.Neb) 3 ml INHALE RQ6H WHILE AWAKE [facility] Last Admin: 12/09/21 15:27 Dose: 3 ml Documented by: Atorvastatin Calcium (Atorvastatin Calcium 20 Mg Tablet) 20 mg PO BEDTIME [facility] Last Admin: 12/08/21 21:18 Dose: 20 mg Documented by: Enoxaparin Sodium (Enoxaparin Sodium 40 Mg/0.4 Ml Syringe) 40 mg SUBCUT Q24H [facility] Last Admin: 12/09/21 09:41 Dose: 40 mg Documented by: Escitalopram Oxalate (Escitalopram Oxalate 10 Mg Tablet) 10 mg PO DAILY [facility] Last Admin: 12/09/21 09:39 Dose: 10 mg Documented by: Furosemide (Furosemide 40 Mg/4 Ml Vial) 40 mg IVPUSH ONCE ONE; Protocol Stop: 12/09/21 18:20 Lisinopril (Lisinopril 20 Mg Tablet) 20 mg PO DAILY [facility]; Protocol Methylprednisolone Sodium Succinate (Methylprednisolone Sod Succ 125 Mg/2 Ml Vial) 60 mg IVPUSH BID [facility] Omeprazole (Omeprazole 20 Mg Capsule.) 20 mg PO DAILY@0630 [facility] Last Admin: 12/09/21 05:22 Dose: 20 mg Documented by: Ondansetron HCl (Ondansetron Hcl 4 Mg/2 Ml Vial) 4 mg IVPUSH Q8H PRN PRN Reason: Nausea and Vomiting Pharmacy Consult (Consult Rx Perform Med Rec) 1 each MISCELLANE ONCE PRN PRN Reason: Consult order Sodium Chloride (0.9 % Sodium Chloride Flush 3 Ml Syringe) 3 ml IVFLUSH QSHIFT [facility] Last Admin: 12/09/21 16:23 Dose: 3 ml Documented by: Time Spent With Patient Time: Total time spent is greater than 50% in coordination of care (as documented) at patient's floor/unit and/or counseling patient: Time with patient: 25 - 35 minutes Progress Note: Quality Stroke Does the patient have a stroke diagnosis?: No Procedures Date of Service Date of Service: 12/09/21
[2021-12-09] MEDS: Furosemide 40 MG/4 ML VIAL IVPUSH (18:35)
[2021-12-09] MEDS: Atorvastatin Calcium 20 MG TABLET PO (20:00)
[2021-12-09] MEDS: Butalb/Acetamin/Caff 50/325/40 TABLET 1 TAB PO (21:49)
[2021-12-10] VITALS (11 sets, daily range): BP systolic 115–175; BP diastolic 62–89; PULSE 68–84; RESP 18–20; TEMP 36.6–37.1; O2SAT 92–99
[2021-12-10] MEDS: Omeprazole 20 MG CAPSULE.DR PO (05:30)
[2021-12-10] MEDS: Albuterol/Iprat 2.5/0.5MG 3 ML AMPUL.NEB INHALE ×3 (07:41→20:31)
[2021-12-10 08:29] LABS: Anion Gap 10 (12-20); Blood Urea Nitrogen 20 mg/dL (9-16); Calcium 9.1 mg/dL (8.4-10.2); Carbon Dioxide 28 mmol/L (22-29); Chloride 103 mmol/L (96-108); Creatinine Clr Calc Pharmacy 97.2; Estimated Glomerular Filt Rate > 60; Glucose Random 113 mg/dL (60-115); Sodium 137 mmol/L (135-145)
[2021-12-10] MEDS: lisinopriL 20 MG TABLET PO (09:27)
[2021-12-10] MEDS: Enoxaparin Sodium 40 MG/0.4 ML SYRINGE SUBCUT (09:27)
[2021-12-10] MEDS: methylPREDNISolone Sod Succ 125 MG/2 ML VIAL 60 MG IVPUSH ×2 (09:28→19:54)
[2021-12-10] MEDS: Escitalopram Oxalate 10 MG TABLET PO (09:28)
[2021-12-10] MEDS: 0.9 % Sodium Chloride Flush 3 ML SYRINGE IVFLUSH ×3 (09:29→19:54)
--- NOTE | 2021-12-10 10:47 | PM.PNCARD ---
Subjective Subjective Date of Service: 12/10/21 Interval history: Patient seen examined at bedside in the morning. Breathing was improving for diuretics. CT pulmonary angiogram did not show pulmonary embolism. Physical Exam Vital Signs: Last Vital Signs Temp 98.3 F 12/10/21 07:35 Pulse 84 12/10/21 07:45 Resp 18 12/10/21 07:45 BP 148/89 H 12/10/21 07:35 Pulse Ox 99 12/10/21 07:35 BMI result Body Mass Index 30.7 GENERAL APPEARANCE: in no acute distress, pleasant. NECK: no carotid bruit, mild jugular venous distention. +HJR SKIN: no suspicious lesions, warm and dry. HEART: no murmurs, regular rate and rhythm. LUNGS:? No wheezes.? ABDOMEN: soft, nontender. EXTREMITIES: no edema. PERIPHERAL PULSES: equal. NEUROLOGIC: No gross deficits, AAO X 3 Objective Labs and Meds Result diagrams: 12/09/21 06:41 12/10/21 08:06 Lab results: Laboratory Results - last 24 hr 12/10/21 08:06 Sodium 137 Potassium 4.0 Chloride 103 Carbon Dioxide 28 Anion Gap 10 L BUN 20 H Creatinine 0.74 Estim Creat Clear Calc 97.2 Estimated GFR > 60 Random Glucose 113 Calcium 9.1 Imaging Radiologist's impression: Impressions Chest CTA 12/09/21 12:36 IMPRESSION: No evidence of acute pulmonary artery embolus. No evidence of thoracic aortic aneurysm or dissection. Mild changes of centrilobular and paraseptal emphysema within the upper lobes bilaterally. Probable mild right hilar lymphadenopathy. VTE: negative Venous Duplex 12/09/21 14:30 IMPRESSION: No DVT demonstrated in the right lower extremity. Progress Note: A&P Assessment and plan (1) Acute diastolic (congestive) heart failure: Status: Acute (2) Left bundle branch block: Status: Acute (3) Mitral valve regurgitation: Status: Acute Plan 51-year-old female presenting with asthma exacerbation. She was also noticed to be in congestive heart failure. She was treated for asthma and improved but did not improved completely echocardiography has shown moderate mitral valve regurgitation. Her valve appears abnormal and it is probably due to previous use of weight loss drugs. Clinically she is to volume overloaded. Continue the diuretics. Titrating hypertensive medications because blood pressure has been elevated. We will follow along with you. A few Fall Risk Details Current Medications: Current Medications Acetaminophen (Acetaminophen 325 Mg Tablet) 650 mg PO Q6H PRN PRN Reason: Pain, Mild (Pain Scale 1-3) Last Admin: 12/09/21 23:11 Dose: 650 mg Documented by: Acetaminophen/Butalbital/Caffeine (Butalb/Acetamin/Caff 50/325/40 Tablet) 1 tab PO Q6H PRN PRN Reason: headache Last Admin: 12/09/21 21:49 Dose: 1 tab Documented by: Albuterol/Ipratropium (Albuterol/Iprat 2.5/0.5mg 3 Ml Ampul.Neb) 3 ml INHALE RQ6H WHILE AWAKE [facility] Last Admin: 12/10/21 07:41 Dose: 3 ml Documented by: Atorvastatin Calcium (Atorvastatin Calcium 20 Mg Tablet) 20 mg PO BEDTIME [facility] Last Admin: 12/09/21 20:00 Dose: 20 mg Documented by: Enoxaparin Sodium (Enoxaparin Sodium 40 Mg/0.4 Ml Syringe) 40 mg SUBCUT Q24H [facility] Last Admin: 12/10/21 09:27 Dose: 40 mg Documented by: Escitalopram Oxalate (Escitalopram Oxalate 10 Mg Tablet) 10 mg PO DAILY [facility] Last Admin: 12/10/21 09:28 Dose: 10 mg Documented by: Lisinopril (Lisinopril 20 Mg Tablet) 20 mg PO DAILY [facility]; Protocol Last Admin: 12/10/21 09:27 Dose: 20 mg Documented by: Methylprednisolone Sodium Succinate (Methylprednisolone Sod Succ 125 Mg/2 Ml Vial) 60 mg IVPUSH BID [facility] Last Admin: 12/10/21 09:28 Dose: 60 mg Documented by: Omeprazole (Omeprazole 20 Mg Capsule.Dr) 20 mg PO DAILY@0630 [facility] Last Admin: 12/10/21 05:30 Dose: 20 mg Documented by: Ondansetron HCl (Ondansetron Hcl 4 Mg/2 Ml Vial) 4 mg IVPUSH Q8H PRN PRN Reason: Nausea and Vomiting Pharmacy Consult (Consult Rx Perform Med Rec) 1 each MISCELLANE ONCE PRN PRN Reason: Consult order Sodium Chloride (0.9 % Sodium Chloride Flush 3 Ml Syringe) 3 ml IVFLUSH QSHIFT [facility] Last Admin: 12/10/21 09:29 Dose: 3 ml Documented by: Time Spent With Patient Time: Total time spent is greater than 50% in coordination of care (as documented) at patient's floor/unit and/or counseling patient: Time with patient: 25 - 35 minutes Progress Note: Quality Stroke Does the patient have a stroke diagnosis?: No Procedures Date of Service Date of Service: 12/10/21
--- NOTE | 2021-12-10 12:37 | P.PNIM_ITS ---
Subjective Subjective Date of Service: 12/10/21 Interval History: seen and examined this morning reports improvement in breathing some cough, no significant phlegm Review of Systems Review of Systems: Yes all other systems are reviewed and are negative Constitutional Constitutional: Denies chills and Denies fever(s) Cardiovascular Cardiovascular: Denies dyspnea Respiratory Respiratory: Denies dyspnea Gastrointestinal Gastrointestinal: Denies diarrhea, Denies nausea and Denies vomiting Physical Exam Vital Signs: Vital Signs: Last Vital Signs Temp 97.8 F 12/10/21 11:17 Pulse 74 12/10/21 11:17 Resp 18 12/10/21 11:17 BP 166/80 H 12/10/21 11:17 Pulse Ox 97 12/10/21 11:17 BMI result Body Mass Index 30.7 Const: General: cooperative, comfortable, no acute distress, alert and awake Nutritional Appearance: overweight Eyes: Pupils: Equal, round and reactive pupils present Resp: Other: bibasialar rales Cardio: Rate: regular rate Heart sounds: S1 normal heart sound present and S2 normal heart sound present GI: Palpation (GI): Soft to palpation and nontender Neuro: Cranial nerves: Yes Equal, round and reactive pupils present Extrem: Other: no leg edema Objective Data Active Medications Acetaminophen (Acetaminophen 325 Mg Tablet) 650 mg PO Q6H PRN PRN Reason: Pain, Mild (Pain Scale 1-3) Last Admin: 12/09/21 23:11 Dose: 650 mg Documented by: ODALYS Acetaminophen/Butalbital/Caffeine (Butalb/Acetamin/Caff 50/325/40 Tablet) 1 tab PO Q6H PRN PRN Reason: headache Last Admin: 12/09/21 21:49 Dose: 1 tab Documented by: ODALYS Albuterol/Ipratropium (Albuterol/Iprat 2.5/0.5mg 3 Ml Ampul.Neb) 3 ml INHALE RQ6H WHILE AWAKE [facility] Last Admin: 12/10/21 07:41 Dose: 3 ml Documented by: ELIZABETH Atorvastatin Calcium (Atorvastatin Calcium 20 Mg Tablet) 20 mg PO BEDTIME [facility] Last Admin: 12/09/21 20:00 Dose: 20 mg Documented by: ODALYS Enoxaparin Sodium (Enoxaparin Sodium 40 Mg/0.4 Ml Syringe) 40 mg SUBCUT Q24H [facility] Last Admin: 12/10/21 09:27 Dose: 40 mg Documented by: LENCHO Escitalopram Oxalate (Escitalopram Oxalate 10 Mg Tablet) 10 mg PO DAILY [facility] Last Admin: 12/10/21 09:28 Dose: 10 mg Documented by: LENCHO Furosemide (Furosemide 40 Mg/4 Ml Vial) 40 mg IVPUSH DAILY [facility]; Protocol Lisinopril (Lisinopril 20 Mg Tablet) 20 mg PO DAILY [facility]; Protocol Last Admin: 12/10/21 09:27 Dose: 20 mg Documented by: LENCHO Methylprednisolone Sodium Succinate (Methylprednisolone Sod Succ 125 Mg/2 Ml Vial) 60 mg IVPUSH BID [facility] Last Admin: 12/10/21 09:28 Dose: 60 mg Documented by: LENCHO Omeprazole (Omeprazole 20 Mg Capsule.Dr) 20 mg PO DAILY@0630 [facility] Last Admin: 12/10/21 05:30 Dose: 20 mg Documented by: ODALYS Ondansetron HCl (Ondansetron Hcl 4 Mg/2 Ml Vial) 4 mg IVPUSH Q8H PRN PRN Reason: Nausea and Vomiting Pharmacy Consult (Consult Rx Perform Med Rec) 1 each MISCELLANE ONCE PRN PRN Reason: Consult order Sodium Chloride (0.9 % Sodium Chloride Flush 3 Ml Syringe) 3 ml IVFLUSH QSHIFT [facility] Last Admin: 12/10/21 09:29 Dose: 3 ml Documented by: LENCHO Labs CBC & Chem 7: 12/09/21 06:41 12/10/21 08:06 Labs: Laboratory Results - last 24 hr 12/10/21 08:06 Anion Gap 10 L Estim Creat Clear Calc 97.2 Estimated GFR > 60 Random Glucose 113 Calcium 9.1 Assessment and Plan (1) Acute diastolic (congestive) heart failure: Status: Acute (2) Left bundle branch block: Status: Acute (3) Acute respiratory failure with hypoxia: Status: Acute (4) Asthma exacerbation: Status: Acute Plan This is a 51 yo Japanese Speaking F (history obtained with Japanese speaking team court interpreter) with a PMH of moderate persistant asthma, allergic rhinitis, GERD, obesity, anxiety/depression, hypertsion, HLD who presents to the hospital with 3 days of progressive shortness of breath with despite the use of scheduled updrafts and inhalers every 4-6 hours at home. She will be admitted for futher treatment. Acute Hypoxic Respiratory Failure - Due to acute exacerbation of moderate persistent asthma improving, now on room air Continue IV solu-medrol q12h Scheduled and PRN Bronchodilators Acute HFpEF Elevated HS trop-I / New LBBB / Elevated BNP HS trop-I Flat Echo completed - showing normal LVEF, but evidence of severe pulm HTN (CTA negative for PE) cardiology following -continue IV lasix HTN not at ideal control increased lisinopril from 10mg to 20mg may need to continue to titrate bp meds follow bp closely leukocytosis likely related to steroids HLD statin GERD PPI Anxiety/Depression Lexapro Full Code DVT pptx, Lovenox Attending: dr. calderón Quality Stroke Does the patient have a stroke diagnosis?: No VTE Prior VTE?: No VTE Risk Level:: Medical - moderate - high VTE Device Contraindication: Treatment Not Indicated VTE Drug Contraindication: N/A - Med Ordered
[2021-12-10] MEDS: Furosemide 40 MG/4 ML VIAL IVPUSH (13:03)
[2021-12-10] MEDS: Isosorbide Mononitrate 30 MG TAB.ER.24H PO (16:03)
[2021-12-10] MEDS: Atorvastatin Calcium 20 MG TABLET PO (19:55)
[2021-12-11] VITALS: BP 144/66; PULSE 72; RESP 18; TEMP 36.8; O2SAT 93
[2021-12-11 03:59] VITALS: BP 143/73; PULSE 70; RESP 16; TEMP 37.3; O2SAT 92
[2021-12-11] MEDS: Omeprazole 20 MG CAPSULE.DR PO (05:47)
[2021-12-11 07:32] VITALS: BP 161/87; PULSE 66; RESP 18; TEMP 37.3; O2SAT 96
[2021-12-11 09:01] LABS: Anion Gap 11 (12-20); Blood Urea Nitrogen 18 mg/dL (9-16); Calcium 9.3 mg/dL (8.4-10.2); Carbon Dioxide 29 mmol/L (22-29); Chloride 103 mmol/L (96-108); Creatinine Clr Calc Pharmacy 97.2; Estimated Glomerular Filt Rate > 60; Glucose Random 105 mg/dL (60-115); Potassium 4.1 mmol/L (3.3-5.1); Sodium 139 mmol/L (135-145)
[2021-12-11] MEDS: lisinopriL 20 MG TABLET PO (09:11)
[2021-12-11] MEDS: Enoxaparin Sodium 40 MG/0.4 ML SYRINGE SUBCUT (09:11)
[2021-12-11] MEDS: predniSONE 20 MG TABLET 40 MG PO (09:11)
[2021-12-11] MEDS: Isosorbide Mononitrate 30 MG TAB.ER.24H PO (09:11)
[2021-12-11] MEDS: Escitalopram Oxalate 10 MG TABLET PO (09:11)
[2021-12-11] MEDS: Furosemide 40 MG/4 ML VIAL IVPUSH (09:11)
[2021-12-11] MEDS: Butalb/Acetamin/Caff 50/325/40 TABLET 1 TAB PO (09:11)
[2021-12-11] MEDS: Acetaminophen 325 MG TABLET 650 MG PO (09:11)
[2021-12-11] MEDS: 0.9 % Sodium Chloride Flush 3 ML SYRINGE IVFLUSH (09:12)
[2021-12-11 11:31] VITALS: BP 150/83; PULSE 60; RESP 18; TEMP 37; O2SAT 92
--- NOTE | 2021-12-11 12:42 | P.PNCA_ITS ---
Subjective Subjective Date of Service: 12/11/21 Interval history: Feeling better Physical Exam Vital Signs: Last Vital Signs Temp 98.6 F 12/11/21 11:31 Pulse 60 12/11/21 11:31 Resp 18 12/11/21 11:31 BP 150/83 H 12/11/21 11:31 Pulse Ox 92 12/11/21 11:31 BMI result Body Mass Index 30.7 GENERAL APPEARANCE: in no acute distress, pleasant. NECK: no carotid bruit, no JVD SKIN: no suspicious lesions, warm and dry. HEART: no murmurs, regular rate and rhythm. LUNGS:? No wheezes.? ABDOMEN: soft, nontender. EXTREMITIES: no edema. PERIPHERAL PULSES: equal. NEUROLOGIC: No gross deficits, AAO X 3 Objective Labs and Meds Result diagrams: 12/09/21 06:41 12/11/21 08:26 Lab results: Laboratory Results - last 24 hr 12/11/21 08:26 Sodium 139 Potassium 4.1 Chloride 103 Carbon Dioxide 29 Anion Gap 11 L BUN 18 H Creatinine 0.74 Estim Creat Clear Calc 97.2 Estimated GFR > 60 Random Glucose 105 Calcium 9.3 Progress Note: A&P Assessment and plan (1) Mitral valve regurgitation: Status: Acute (2) Acute diastolic (congestive) heart failure: Status: Acute (3) Left bundle branch block: Status: Acute Plan 51-year-old female presenting with asthma exacerbation.? She was also noticed to be in congestive heart failure.? She was treated for asthma and improved but did not improved completely echocardiography has shown moderate mitral valve regurgitation.? Her valve appears abnormal and it is probably due to previous use of weight loss drugs.? Clinically stable.? Continue the diuretics.? Titrating hypertensive medications because blood pressure has been elevated.? We will follow along with you. Fall Risk Details Current Medications: Current Medications Acetaminophen (Acetaminophen 325 Mg Tablet) 650 mg PO Q6H PRN PRN Reason: Pain, Mild (Pain Scale 1-3) Last Admin: 12/11/21 09:11 Dose: 650 mg Documented by: Acetaminophen/Butalbital/Caffeine (Butalb/Acetamin/Caff 50/325/40 Tablet) 1 tab PO Q6H PRN PRN Reason: headache Last Admin: 12/11/21 09:11 Dose: 1 tab Documented by: Albuterol/Ipratropium (Albuterol/Iprat 2.5/0.5mg 3 Ml Ampul.Neb) 3 ml INHALE RQ6H WHILE AWAKE [facility] Last Admin: 12/11/21 08:12 Dose: Not Given Documented by: Atorvastatin Calcium (Atorvastatin Calcium 20 Mg Tablet) 20 mg PO BEDTIME [facility] Last Admin: 12/10/21 19:55 Dose: 20 mg Documented by: Enoxaparin Sodium (Enoxaparin Sodium 40 Mg/0.4 Ml Syringe) 40 mg SUBCUT Q24H [facility] Last Admin: 12/11/21 09:11 Dose: 40 mg Documented by: Escitalopram Oxalate (Escitalopram Oxalate 10 Mg Tablet) 10 mg PO DAILY [facility] Last Admin: 12/11/21 09:11 Dose: 10 mg Documented by: Furosemide (Furosemide 40 Mg/4 Ml Vial) 40 mg IVPUSH DAILY [facility]; Protocol Last Admin: 12/11/21 09:11 Dose: 40 mg Documented by: Isosorbide Mononitrate (Isosorbide Mononitrate 30 Mg Tab.Er.24h) 30 mg PO DAILY [facility]; Protocol Last Admin: 12/11/21 09:11 Dose: 30 mg Documented by: Lisinopril (Lisinopril 20 Mg Tablet) 20 mg PO DAILY [facility]; Protocol Last Admin: 12/11/21 09:11 Dose: 20 mg Documented by: Omeprazole (Omeprazole 20 Mg Capsule.Dr) 20 mg PO DAILY@0630 [facility] Last Admin: 12/11/21 05:47 Dose: 20 mg Documented by: Ondansetron HCl (Ondansetron Hcl 4 Mg/2 Ml Vial) 4 mg IVPUSH Q8H PRN PRN Reason: Nausea and Vomiting Pharmacy Consult (Consult Rx Perform Med Rec) 1 each MISCELLANE ONCE PRN PRN Reason: Consult order Prednisone (Prednisone 20 Mg Tablet) 40 mg PO DAILY [facility] Last Admin: 12/11/21 09:11 Dose: 40 mg Documented by: Sodium Chloride (0.9 % Sodium Chloride Flush 3 Ml Syringe) 3 ml IVFLUSH QSHIFT [facility] Last Admin: 12/11/21 09:12 Dose: 3 ml Documented by: Time Spent With Patient Time: Total time spent is greater than 50% in coordination of care (as documented) at patient's floor/unit and/or counseling patient: Time with patient: 15 - 24 minutes Progress Note: Quality Stroke Does the patient have a stroke diagnosis?: No Procedures Date of Service Date of Service: 12/11/21
--- NOTE | 2021-12-11 14:15 | P.DS_ITS ---
DS: Providers Provider Date of Service: 12/11/21 Date of admission: 12/08/21 10:38 Date of discharge: 12/11/21 Primary care physician: Lisa Zazueta MD Consults: 12/08/21 10:41 Consult to Cardiology Routine Consulting Provider: Brennan Barnett Reason for consultation: new LBBB, mild elevation in HS trop-I, previous chest pain Attending physician on discharge: Christian Shah Discharging clinician: Sherri Esqueda DS: Diagnosis Discharge Diagnosis (1) Acute diastolic (congestive) heart failure: Status: Acute (2) Left bundle branch block: Status: Acute (3) Mitral valve regurgitation: Status: Acute (4) Acute respiratory failure with hypoxia: Status: Acute (5) Asthma exacerbation: Status: Acute (6) Essential hypertension: Status: Acute DS: Summary Hospital Course Hospital Course: From H&P on day of admission This is a 51 yo South African Speaking F (history obtained with South African speaking team instrument maker) with a PMH of moderate persistant asthma, allergic rhinitis, GERD, obesity, anxiety/depression, hypertsion who presents to the hospital with 3 days of progressive shortness of breath with despite the use of scheduled updrafts and inhalers every 4-6 hours at home. The patient reports that her symptoms began 3 days [employer] and were only mild at first, but now she reports shortness of breath and wheezing with minimal exertion. She reports intermittent non-productive cough. She reports no fevers or chills. She reports no known sick contacts, including COVID. She reports lower abdominal pain / pleuritic chest pain which began after severe coughing bouts. She reports substernal chest pain(unable to categorize it), severe in nature, lasting less than a minute with associated numbness on the night prior to arrival. She denies any current chest pain and denies anginal symptoms in the past. Upon arrival to the ED, the patient was noted to have respiratory distress and wheezing. She was given IV mag and IV solu-medrol in route to the ED. In the emergency room, she was given 2 rounds to continue Nebs but remained tachypneic with wheezing. She desaturated to 83% on room air post bronchodilator therapy. Her EKG showed a new LBBB and HS trop-I of 18, followed by 21. COVID vaccination status: Unvaccinated Hospital course by problem: Acute Hypoxic Respiratory Failure. Multifactorial secondary to acute exacerbation of moderate persistent asthma and acute diastolic CHF. She was treated with breathing treatments, supplemental oxygen, system steroids and lasix. Her respiratory status improved and she is now on room air. She will be discharged home to complete course of steroids. Acute HFpEF. Found to have Elevated HS trop-I / New LBBB / Elevated BNP. HS trop-I remained Flat. She had Echo completed - showing normal LVEF, but evidence of severe pulm HTN (CTA negative for PE). She was seen by cardiology and diuresed with IV lasix. She improved clinically and will be discharged home with po lasix. She should call to schedule follow up with cardiology. HTN BP elevated. Her dose of lisinopril was increased from 10mg to 20mg and she was started on imdur. Time Spent with Patient Time attestation: Total time spent providing and/or coordinating discharge services: Discharge coordination time: Greater than 30 minutes Quality: Stroke Does the patient have a stroke diagnosis?: No Physical Exam Vital Signs: Vital Signs: Last Vital Signs Temp 98.6 F 12/11/21 11:31 Pulse 60 12/11/21 11:31 Resp 18 12/11/21 11:31 BP 150/83 H 12/11/21 11:31 Pulse Ox 92 12/11/21 11:31 BMI result Body Mass Index 30.7 Const: General: cooperative, comfortable, no acute distress, alert and awake Nutritional Appearance: overweight Eyes: Pupils: Equal, round and reactive pupils present Cardio: Rate: regular rate Heart sounds: S1 normal heart sound present and S2 normal heart sound present GI: Palpation (GI): Soft to palpation and nontender Neuro: Cranial nerves: Yes Equal, round and reactive pupils present Extrem: Other: no leg edema DS: Data Data Completed and Pending Labs on day of discharge: Laboratory Results - last 24 hr 12/11/21 08:26 Sodium 139 Potassium 4.1 Chloride 103 Carbon Dioxide 29 Anion Gap 11 L BUN 18 H Creatinine 0.74 Estim Creat Clear Calc 97.2 Estimated GFR > 60 Random Glucose 105 Calcium 9.3 Discharge Plan Discharge Patient Disposition: Home, Self-Care Discharge Diagnosis: acute hypoxic respiratory failure acute diastolic heart failure uncontrolled HTN Referrals: Brennan Barnett MD [Physician] - 1 Week Sukumar Marbin,Candice, MD [Primary Care Provider] - 1 Week Discharge Medications: New lisinopril 20 mg Tablet 20 mg PO DAILY 30 Days Qty: 30 0RF Protocol: Hold for SBP< HOLD for SBP < : 90 isosorbide mononitrate 60 mg tablet extended release 24 hr 60 mg PO DAILY 30 Days Qty: 30 0RF prednisone 20 mg tablet 40 mg PO DAILY 3 Days Qty: 6 0RF furosemide [Lasix] 40 mg tablet 40 mg PO DAILY 30 Days Qty: 30 0RF Continued albuterol sulfate 2.5 mg /3 mL (0.083 %) solution for nebulization 2.5 mg inhalation Q4-6H PRN (Reason: bronchospasm) Qty: 75 0RF albuterol sulfate [ProAir HFA] 90 mcg/actuation HFA aerosol inhaler 2 puff PO Q6H PRN (Reason: bronchospasm) Qty: 18 8RF escitalopram oxalate 10 mg tablet 10 mg PO DAILY Qty: 90 0RF simvastatin 40 mg tablet 40 mg PO BEDTIME 0RF omeprazole 20 mg capsule,delayed release(DR/EC) 20 mg PO DAILY 90 Days Qty: 90 1RF Flovent HFA 44 mcg/actuation HFA aerosol inhaler 2 puff inhalation BID 30 Days Qty: 10.6 6RF Rx Instructions: administer with spacer Discontinued lisinopril 10 mg tablet 10 mg PO DAILY 90 Days Qty: 90 3RF Discharge Orders: Discharge Order (Routine); Ordered 12/11/21 Ordered By: Sherri Esqueda Activity on Discharge: As tolerated Stand Alone Forms: Patient Portal Discharge page Other Ambulatory Orders: Basic Metabolic Panel (Routine) Timeframe: 20211218 Facility: [facility] - Location: Laboratory Ordered By: Sherri Esqueda Care Plan Goals: see below Health Concerns: acute respiratory failure with hypoxia. resolved acute diastolic heart failure mitral valve regurgitation pulmonary hypertention asthma exacerbation uncontrolled blood pressure Plan of Treatment: complete course of prednisone start taking Imdur Your dose of lisinopril was increased Call to schedule follow up with PCP and with cardiology you have been started on a diuretic called lasix Please have labs repeated in one week Assessment: see discharge summary Discharge Date/Time: 12/11/21 15:30
--- NOTE | 2021-12-11 14:25 | MHC.CM.PN ---
Patient has been medically cleared for dc to home today, no services.
== END 2021-12-11 15:30 | disposition home or self-care (01) | DRG 141 ==
LOC: HO.ED 09:21 → HO.EDOVER 10:44 → HO.IMC 16:44
PROVIDERS: Admitting Provider Family Medicine; Emergency Provider Emergency Medicine; PCP Internal Medicine; Visit Provider Physician Assistant Medical
DX: J45.901 Unspecified asthma with (acute) exacerbation (principal); J96.01 Acute respiratory failure with hypoxia; I50.31 Acute diastolic (congestive) heart failure; F17.210 Nicotine dependence, cigarettes, uncomplicated; I11.0 Hypertensive heart disease with heart failure; I44.7 Left bundle-branch block, unspecified; E78.5 Hyperlipidemia, unspecified; D72.829 Elevated white blood cell count, unspecified; K21.9 Gastro-esophageal reflux disease without esophagitis; Z20.822 Contact with and (suspected) exposure to COVID-19; Z71.6 Tobacco abuse counseling; Z88.0 Allergy status to penicillin; Z79.51 Long term (current) use of inhaled steroids; Z79.52 Long term (current) use of systemic steroids; Z79.899 Other long term (current) drug therapy
CPT/HCPCS: 36415; 71045; 71275; 80048; 80076; 83880; 84484; 85025; 85027; 87635; 93005; 93306; 93971; 94640; 94644; 94645; 96360; 99285; J1650; J1940; J2930; Q9967

== ENCOUNTER 2021-12-21 10:13 | Outpatient (REF) | payer OTHER, SELFPAY ==
[2021-12-21 10:37] LABS: MANUAL DIFF FLAG NO
[2021-12-21 10:40] LABS: Basophils Percent Auto 0.3 % (0-2); Eosinophils Absolute Auto 0.2 X10*3/uL (0.0-0.4); Eosinophils Percent Auto 2.1 % (0-4); Hematocrit 40.2 % (37.0-47.0); Hemoglobin 13.4 g/dl (12.0-16.0); Imm Gran Abs Auto 0.11 X10*3/uL (0.00-0.03); Imm Gran Pct Auto 1.1 % (0.0-0.4); Lymphocytes Absolute Auto 2.3 X10*3/uL (1.2-4.9); Lymphocytes Percent Auto 23.2 % (20-40); Mean Corpuscular HGB Conc 33.3 g/dl (31.0-35.0); Mean Corpuscular Hemoglobin 32.1 pg (27.0-33.0); Mean Corpuscular Volume 96.2 fL (80.0-98.0); Mean Platelet Volume 8.6 fL (9.4-12.3); Monocytes Absolute Auto 0.7 X10*3/uL (0.1-1.2); Monocytes Percent Auto 7.2 % (2-11); Neutrophils Absolute Auto 6.5 x10*3/uL (2.0-8.3); Neutrophils Percent Auto 66.1 % (45-73); Platelet Count 310 X10*3/uL (160-400); Red Blood Count 4.18 X10*6/uL (4.20-5.50); White Blood Count 9.9 X10*3/uL (4.8-10.8)
[2021-12-21 11:12] LABS: Alanine Aminotransferase 21 U/L (0-31); Alkaline Phosphatase 85 U/L (39-117); Anion Gap 12 (12-20); Aspartate Amino Transferase 15 U/L (5-31); Bilirubin Total 0.4 mg/dL (0.0-1.0); Blood Urea Nitrogen 12 mg/dL (9-16); Calcium 8.8 mg/dL (8.4-10.2); Carbon Dioxide 24 mmol/L (22-29); Chloride 107 mmol/L (96-108); Cholesterol 247 mg/dL; Estimated Glomerular Filt Rate > 60; Glucose Fasting 102 mg/dL (60-99); HDL Cholesterol 47 mg/dL; LDL Cholesterol Calculated 172 mg/dl; Potassium 4.4 mmol/L (3.3-5.1); Sodium 139 mmol/L (135-145); Total Protein 6.8 g/dL (6.5-8.0); Triglycerides 142 mg/dL
[2021-12-25 11:37] LABS: Vitamin D 25-OH, D2 <4 ng/mL; Vitamin D 25-OH, D3 17 ng/mL; Vitamin D 25-OH, Total 17 ng/mL (30-100)
== END 2021-12-21 10:14 | disposition home or self-care (01) ==
LOC: HO.LAB 10:13
PROVIDERS: Absent Provider Physician Assistant Medical; PCP Internal Medicine; Visit Provider Nurse Practitioner Family
DX: I11.0 Hypertensive heart disease with heart failure (principal); I50.31 Acute diastolic (congestive) heart failure; E55.9 Vitamin D deficiency, unspecified; E78.5 Hyperlipidemia, unspecified; D64.9 Anemia, unspecified; J45.40 Moderate persistent asthma, uncomplicated
CPT/HCPCS: 36415; 80053; 80061; 82306; 85025

== ENCOUNTER → 2022-01-13 14:05 | Outpatient (BNVA) | payer OTHER, SELFPAY | PROVIDERS: PCP Internal Medicine; Referring Provider Internal Medicine; Visit Provider Nurse Practitioner Family | DX: Z09 Encounter for follow-up examination after completed treatment for conditions other than malignant neoplasm (principal); I44.7 Left bundle-branch block, unspecified; I11.0 Hypertensive heart disease with heart failure; I50.31 Acute diastolic (congestive) heart failure; I34.0 Nonrheumatic mitral (valve) insufficiency; I35.0 Nonrheumatic aortic (valve) stenosis; J45.40 Moderate persistent asthma, uncomplicated | CPT/HCPCS: 99212 ==

== ENCOUNTER → 2022-02-01 08:10 | Outpatient (REF) | payer OTHER, SELFPAY ==
--- NOTE | ~2022-02-01 | NM_ITS ---
[facility] Myocardial perfusion study Indication: Left bundle branch block Technique: Resting perfusion study was performed on 02/01/2022. Patient was administered 30 mCi of sestamibi intravenously at rest. Images were then obtained in supine position. Patient was contacted multiple times to come back for stress acquisition but did not return. Images were processed with the software and compared side to side in short axis, horizontal long axis and vertical long axis views. Findings: Raw acquisition reviewed. Resting study shows no significant perfusion abnormality. Both uncorrected as well as CT attenuation corrected images were reviewed. Gating at rest reveals normal wall motion with ejection fraction at 51%. VT/VT cardiolite stress test Impression: 1. Myocardial perfusion imaging study shows normal perfusion during rest. Stress portion not acquired as patient did not return. 2. Gated LVEF is 51% during rest.
== END ==
LOC: HO.CARD 08:10
PROVIDERS: Visit Provider Nurse Practitioner Family
DX: I44.7 Left bundle-branch block, unspecified (principal)
CPT/HCPCS: 78452; A9500

== ENCOUNTER → 2022-03-09 08:48 | Outpatient (REF) | payer OTHER, SELFPAY ==
--- NOTE | ~2022-03-09 | NM_ITS ---
Lexiscan Myocardial perfusion study Indication: Left bundle branch, assess for coronary disease and ischemia Technique: The patient was brought in for a Lexiscan perfusion study on 03/09/2022 and was injected 0.4 mg of Lexiscan intravenously. Within a minute of this injection 25 mCi of sestamibi was given intravenously. Images were obtained using the SPECT gamma camera interlaced with the gating device. Images were obtained in supine position. Resting perfusion study was performed on 03/10/2022. Patient was administered 25 mCi of sestamibi intravenously at rest. Images were then obtained in supine position. Total DLP 120mGy-cm. Images were processed with the software and compared side to side in short axis, horizontal long axis and vertical long axis views. Findings: Raw acquisition was reviewed. The stress perfusion study showed diminished tracer uptake along inferior wall, inferior septum and part of septum. There is some improvement with CT attenuation correction and hence there could be components of diaphragmatic attenuation artifact. The gated study shows mildly diminished LV systolic function with calculated LVEF of 48%. LV cavity is normal in size. The gated study shows mildly reduced wall thickening and contraction of segments as listed above. Resting study shows diminished tracer uptake in mid to distal inferior wall, inferior septum and proximal septum somewhat similar to stress acquisition. Improvement with CT attenuation correction congestive of components of diaphragmatic attenuation artifact. Gating at rest reveals hypokinesis in the above segments and ejection fraction at 42%. The findings are consistent with reversible perfusion defect in the inferior septum, adjacent inferior wall and part of septum but no reversible defects. There are also components of diaphragmatic attenuation artifact NM/NM jamie perf SPECT rest & str Impression: 1. Myocardial perfusion imaging study shows no clear evidence of any ischemia. Fixed defects likely related to left bundle branch block. 2. Gated LVEF is 48% during stress and 42% during rest. Correlate with echocardiogram. 3. Transient ischemic dilatation not present. EKG component of the test reported separately.
--- NOTE | 2022-03-09 09:00 | CA_ITS ---
Acquisition Time: 2022-03-09 09:32:12 Total Exercise Time: 00:02:00 Test Indications: new lbbb Medications: see chart Protocol: LEXISCAN Max HR: 086 BPM 50% of Pred: 170 BPM Max BP: 158/092 mmHG Max Work Load: 1.0 METS Pharmacological stress test with Lexiscan injection, while sitting, with mild sob, no chest discomfort, with development of LBBB once rate near 80b/min, with normotensive response to injection, with nondiagnostic EKG for ischemia. In recovery she was treated with Aminophylline 75mg IVP to reverse Lexiscan with improvement in breathing. LBBB resolved once heart rate reached 72 in recovery. Nuclear images pending. Test reviewed with Dr Garcia. Referred By: Liz Luke Overread By: LIZ LUKE
== END ==
LOC: HO.CARD 08:48
PROVIDERS: Visit Provider Nurse Practitioner Family
DX: I44.7 Left bundle-branch block, unspecified (principal)
CPT/HCPCS: 78452; 93017; A9500; J0280; J2785

== ENCOUNTER 2022-03-12 10:53 | Emergency (ER) | payer OTHER, SELFPAY ==
[2022-03-12 10:57] VITALS: BP 148/70; PULSE 75; RESP 19; TEMP 36.6; O2SAT 97; BMI 32.5
--- NOTE | 2022-03-12 12:22 | ED.SKABFB ---
HPI - Skin/Abscess/Foreign Bdy General Chief complaint: Wound/Laceration Stated complaint: R side of face swollen Time Seen by Provider: 03/12/22 12:21 Source: patient Mode of arrival: ambulatory Limitations: no limitations History of Present Illness HPI narrative: 51 y/o female presents to the ER for evaluation of an abscess on the right side of her face that started when she woke up this morning. She reports pain and swelling of the right cheek that started when she woke up. She reports there is redness and tenderness of the area. She denies any dental pain or trauma. The pain is worse when she opens her mouth or speaks. She denies any fever or chills. She denies any history of cysts or abscesses in the past. She is not diabetic MD complaint: abscess/boil Onset (ago): hour(s) Tetanus up to date: yes Location: face Severity: severe Severity scale (1-10): 8 Quality: aching Pain Consistency: constant Relieving factors: none Exacerbating factors: palpation Context: none Associated symptoms: denies other symptoms Treatments prior to arrival: none Related Data Previous Rx's Medication Instructions Recorded albuterol sulfate 90 mcg/actuation 2 puff PO Q6H PRN #18 g 04/24/21 aerosol inhaler (ProAir HFA) fluticasone propionate 44 2 puff INHALATION BID 30 Days 08/05/21 mcg/actuation HFA aerosol inhaler #10.6 g (Flovent HFA) omeprazole 20 mg capsule,delayed 20 mg PO DAILY 90 Days #90 cap 08/05/21 release albuterol sulfate 2.5 mg (3 mL) INHALATION Q4-6H PRN 12/17/21 #75 ml hydroxyzine HCl 10 mg tablet 10 mg PO BEDTIME PRN #7 tab 12/17/21 miscellaneous medical supply 1 ea MISCELLANEOUS DAILY #1 ea 12/17/21 blood pressure monitor #1 ea 12/22/21 nebulizers (AeroEclipse II #1 ea 12/22/21 Nebulizer) cholecalciferol (vitamin D3) 25 25 mcg PO DAILY 90 Days #90 cap 12/26/21 mcg (1,000 unit) capsule escitalopram oxalate 10 mg tablet 10 mg PO DAILY #90 tab 12/26/21 furosemide 40 mg tablet (Lasix) 40 mg PO DAILY 30 Days #30 tab 02/18/22 isosorbide mononitrate 60 mg 60 mg PO DAILY 30 Days #30 tab 02/18/22 tablet,extended release 24 hr lisinopril 20 mg tablet 20 mg PO DAILY 30 Days #30 tab 02/18/22 simvastatin 40 mg tablet 40 mg PO BEDTIME 90 Days #90 tab 02/18/22 doxycycline hyclate 100 mg tablet 100 mg PO BID #14 tab 03/12/22 Allergies Allergy/AdvReac Type Severity Reaction Status Date / Time Penicillins Allergy Intermediate DIFFICULTY Verified 01/13/22 14:14 BREATHING Review of Systems Review of Systems: Constitutional: No Fever, No Chills ENT/Mouth: No sore throat, No Rhinorrhea, No Swallowing Difficulty Eyes: No Eye Pain, No Swelling, No Redness Cardiovascular: No Chest Pain, No SOB Gastrointestinal: No Nausea, No Vomitings Skin: + Skin Lesions, No rash Neuro: No Dizziness, No Headache Psych: + Anxiety/Panic Heme/Lymph: No Bruising, No Lymphadenopathy PMFSH Past Medical History Medical History Allergic rhinitis Arthritis Asthma Chronic GERD Essential hypertension Hypertension Lumbar spondylosis Moderate persistent asthma, uncomplicated Moderate recurrent major depression Pure hypercholesterolemia Surgical History Hx of cholecystectomy Hx of hysterectomy Hx of tubal ligation Family History Family History Father Heart attack Mother Ovarian cancer Family/Other Substance use disorder Mental health disorder Social History Social History Household Members: Spouse Housing: Apartment Alcohol intake: current Alcohol intake frequency: holidays/special occasions only Alcohol type: beer Patient Tobacco Use Status: Current everyday Tobacco user Tobacco use type: Cigarette Cigarettes Per Day: 0.5 e-Cigarette/Vaping Use: Never Used Second Hand Smoke Exposure: No Advance Directives: No Advance Directives Information Provided: No service: No Current occupational status: disabled Physical Exam Vital Signs: Vital Signs: Last Vital Signs Temp 98 F 03/12/22 10:57 Pulse 75 03/12/22 10:57 Resp 19 03/12/22 10:57 BP 148/70 H 03/12/22 10:57 Pulse Ox 97 03/12/22 10:57 BMI result Body Mass Index 32.5 Appearance: Alert. Oriented X3. No acute distress. HEENT: Inspection of the face reveals CVS: Normal heart rate and rhythm. Pulses normal. Respiratory: No respiratory distress. Skin: Skin warm and dry. Normal skin color. Normal skin turgor. No rashes. Extremities: normal inspection, normal ROM x4 Neuro: Oriented X 3. No motor deficit. No sensory deficit. Procedures Abscess I/D Site: face Side (if applicable): right Local Anesthetic: lidocaine 2% Amount of anesthesia used (mL): 0.5 Technique: incised with blade Sent for culture/gram staining?: No Irrigation: No Packing used?: none Discharge Plan Discharge Clinical Impression: Infected cyst of skin Patient Disposition: Home, Self-Care Instructions: Cyst (ED) Additional Instructions: Use warm soaks to the area several times per day. Take the prescribed antibiotic as directed, complete the entire course. Stay out of the sun while on this antibiotic and cause a rash. If you develop new or worsening symptoms call 911 or come back to the ER for further evaluation. Prescriptions: New doxycycline hyclate 100 mg tablet 100 mg PO BID Qty: 14 0RF No Action albuterol sulfate [ProAir HFA] 90 mcg/actuation HFA aerosol inhaler 2 puff PO Q6H PRN (Reason: bronchospasm) Qty: 18 8RF (DME) blood pressure monitor Kit See Rx Instructions .Route Qty: 1 0RF Rx Instructions: As directed (DME) AeroEclipse II Nebulizer [facility] [place] Instructions .Route Qty: 1 0RF Rx Instructions: As directed escitalopram oxalate 10 mg tablet 10 mg PO DAILY Qty: 90 0RF cholecalciferol (vitamin D3) 25 mcg (1,000 unit) capsule 25 mcg PO DAILY 90 Days Qty: 90 1RF furosemide [Lasix] 40 mg tablet 40 mg PO DAILY 30 Days Qty: 30 3RF isosorbide mononitrate 60 mg tablet extended release 24 hr 60 mg PO DAILY 30 Days Qty: 30 3RF lisinopril 20 mg tablet 20 mg PO DAILY 30 Days Qty: 30 0RF Protocol: Hold for SBP< HOLD for SBP < : 90 simvastatin 40 mg tablet 40 mg PO BEDTIME 90 Days Qty: 90 1RF omeprazole 20 mg capsule,delayed release(DR/EC) 20 mg PO DAILY 90 Days Qty: 90 1RF Flovent HFA 44 mcg/actuation HFA aerosol inhaler 2 puff inhalation BID 30 Days Qty: 10.6 6RF Rx Instructions: administer with spacer albuterol sulfate 2.5 mg /3 mL (0.083 %) solution for nebulization 2.5 mg inhalation Q4-6H PRN (Reason: bronchospasm) Qty: 75 0RF hydroxyzine HCl 10 mg tablet 10 mg PO BEDTIME PRN (Reason: anxiety) Qty: 7 0RF miscellaneous medical supply Misc 1 ea miscellaneous DAILY Qty: 1 0RF Rx Instructions: nebulizer machine with tubing Interventions: ED Discharge Assessment Last Done: 03/12/22 13:09 Discharge Date/Time: 03/12/22 13:10
[2022-03-12] MEDS: oxyCODONE HCl Immed Release 5 MG TABLET PO (12:39)
[2022-03-12] MEDS: Lidocaine HCl 2 % MPF 5 ML VIAL INFILTRATI (12:39)
== END 2022-03-12 13:10 | disposition home or self-care (01) ==
LOC: HO.ED 12:53
PROVIDERS: Emergency Provider Emergency Medicine; PCP Internal Medicine
DX: L72.9 Follicular cyst of the skin and subcutaneous tissue, unspecified (principal); I10 Essential (primary) hypertension; J45.909 Unspecified asthma, uncomplicated
CPT/HCPCS: 10060; 99283; 99284

== ENCOUNTER → 2022-03-31 11:23 | Outpatient (BNVA) | payer OTHER, SELFPAY | PROVIDERS: PCP Internal Medicine; Visit Provider Nurse Practitioner Family | DX: M47.816 Spondylosis without myelopathy or radiculopathy, lumbar region (principal); M17.12 Unilateral primary osteoarthritis, left knee; R20.0 Anesthesia of skin; B07.0 Plantar wart | CPT/HCPCS: 99212 ==

== ENCOUNTER 2022-04-19 09:28 | Outpatient (REF) | payer OTHER, SELFPAY | END 2022-04-19 09:29 | disposition home or self-care (01) | LOC: HO.HOSX 09:28 | PROVIDERS: Visit Provider Orthopaedic Surgery | DX: Z13.89 Encounter for screening for other disorder (principal) ==

== ENCOUNTER 2022-08-25 13:37 | Emergency (ER) | payer OTHER, SELFPAY ==
--- NOTE | ~2022-08-25 | XR_ITS ---
EXAMINATION: XR CHEST CLINICAL INFORMATION: Shortness of breath, cough. COMPARISON: 12/18/2021 chest radiograph. TECHNIQUE: Frontal view of the chest was obtained. FINDINGS: No significant abnormality is noted involving the heart, lungs, mediastinum, bony thorax or soft tissues. XR/XR chest 1V IMPRESSION: No acute cardiopulmonary process.
[2022-08-25 14:46] VITALS: BP 195/89; PULSE 84; RESP 20; TEMP 36.6; O2SAT 97; BMI 33.3
[2022-08-25 15:30] LABS: MANUAL DIFF FLAG NO
[2022-08-25 15:32] LABS: Basophils Absolute Auto 0.1 X10*3/uL (0.0-0.2); Basophils Percent Auto 0.8 % (0-2); Eosinophils Absolute Auto 0.3 X10*3/uL (0.0-0.4); Eosinophils Percent Auto 3.1 % (0-4); Hematocrit 41.2 % (37.0-47.0); Hemoglobin 14.1 g/dl (12.0-16.0); Imm Gran Abs Auto 0.04 X10*3/uL (0.00-0.03); Imm Gran Pct Auto 0.5 % (0.0-0.4); Lymphocytes Absolute Auto 2.8 X10*3/uL (1.2-4.9); Lymphocytes Percent Auto 32.5 % (20-40); Mean Corpuscular HGB Conc 34.2 g/dl (31.0-35.0); Mean Corpuscular Hemoglobin 33.4 pg (27.0-33.0); Mean Corpuscular Volume 97.6 fL (80.0-98.0); Mean Platelet Volume 9.1 fL (9.4-12.3); Monocytes Absolute Auto 0.5 X10*3/uL (0.1-1.2); Monocytes Percent Auto 5.8 % (2-11); Neutrophils Percent Auto 57.3 % (45-73); Platelet Count 319 X10*3/uL (160-400); Red Blood Count 4.22 X10*6/uL (4.20-5.50); Red Cell Distribution Width 14.3 % (11.0-16.0); White Blood Count 8.8 X10*3/uL (4.8-10.8)
[2022-08-25 15:46] LABS: Anion Gap 14 (12-20); Blood Urea Nitrogen 15 mg/dL (9-16); Calcium 9.6 mg/dL (8.4-10.2); Carbon Dioxide 26 mmol/L (22-29); Chloride 107 mmol/L (96-108); Creatinine Clr Calc Pharmacy 91.4; Estimated Glomerular Filt Rate > 60; Glucose Random 92 mg/dL (60-115); Potassium 4.9 mmol/L (3.3-5.1); Sodium 142 mmol/L (135-145)
[2022-08-25 15:50] LABS: COVID-19 Test Negative (Negative)
--- OUTSIDE RECORDS SUMMARY | 2022-08-25 19:43 | XMS_ITS ---
:1970 Author Organization [facility] Address [address] [place] [address] Care Team Providers Name Role Phone Carlin Brown Unavailable Unavailable PROBLEMS Unknown Problems ALLERGIES No Information ENCOUNTERS Encounter Location Date Diagnosis [facility] [id number] [place] [address] [facility] [address], [place] Oct, [id number] [facility] [address], [place] Aug, [id number] [facility] [address], [place] Mar, [id number] IMMUNIZATIONS No Known Immunizations SOCIAL HISTORY Never Assessed REASON FOR REFERRAL FUNCTIONAL STATUS PLAN OF CARE VITAL SIGNS MEDICATIONS Unknown Medications PROCEDURES No Known procedures RESULTS No Results REASON FOR VISIT Pt no show, Patient presents today for a feeling of something in stomach Insurance Providers Formerly [facility] Health Member Patient Patient Patient Patient Patient Subscriber Subscriber Subscriber Group Insurance Plan Plan Plan Plan ID Relationship Address Phone Name Date of ID Name Date of No Type Insurance Insurance Insurance Coverage to Subscriber Address Phone Name Dates [employer] [phone] [employer] self [place] [id number] Health [id number] Health H [place] Plan [facility] Plan [id number] MEDICAID [phone] MEDICAID self REJI [id number] OF [place] [id number] OF [place] H [place] [address] [place] [id number]
== END 2022-08-25 19:57 | disposition left against medical advice (07) ==
LOC: HO.ED 19:42
PROVIDERS: Emergency Provider Emergency Medicine; PCP Internal Medicine
DX: J45.909 Unspecified asthma, uncomplicated (principal); R06.02 Shortness of breath; Z20.822 Contact with and (suspected) exposure to COVID-19; Z79.899 Other long term (current) drug therapy
CPT/HCPCS: 36415; 71045; 80048; 85025; 87635; 99281; 99283

== ENCOUNTER → 2022-09-30 14:03 | Outpatient (BNVA) | payer OTHER, SELFPAY | PROVIDERS: PCP Internal Medicine; Visit Provider Nurse Practitioner Family | DX: M17.12 Unilateral primary osteoarthritis, left knee (principal); M47.816 Spondylosis without myelopathy or radiculopathy, lumbar region; B07.0 Plantar wart; R20.0 Anesthesia of skin | CPT/HCPCS: 99212 ==

== ENCOUNTER 2022-12-08 18:17 | Emergency (ER) | payer OTHER, SELFPAY ==
[2022-12-08] VITALS (16 sets, daily range): BP systolic 108–224; BP diastolic 34–110; PULSE 0–60; RESP 0–18; TEMP 32.3–32.8; O2SAT 89–99; BMI 44.8
--- NOTE | ~2022-12-08 | XR_ITS ---
EXAMINATION: XR CHEST CLINICAL INFORMATION: Cardiac arrest COMPARISON: Chest xray on 08/25/22 TECHNIQUE: Frontal view of the chest was obtained. FINDINGS: ET tube 4.0cm above the kendra. The cardiomediastinal silhouette is normal. Mild increased pulmonary vascularity. No areas of consolidation. No pleural effusions. XR/XR chest 1V IMPRESSION: 1. ET tube 4.0 cm above the kendra. 2. Mild pulmonary edema.
--- NOTE | 2022-12-08 19:02 | ED_ITS ---
HPI - CPR General Chief Complaint: Cardiac Arrest/CPR Stated Complaint: CARDIAC ARREST Time Seen by Provider: 12/08/22 18:22 Source: EMS Mode of arrival: EMS Limitations: other (Cardiac arrest) History of Present Illness HPI narrative: 52-year-old female who is brought to emergency department for evaluation of card iac arrest. Paramedics state that the family stepped out for a short period of time when he came back the patient was unresponsive therefore there was an unknown down time. When the paramedics arrived on the scene, the patient was not breathing and was asystolic. The patient was given 2 rounds of epinephrine and CPR using a Kelvin device she was intubated with an I-gel LMA . The paramedics state that they got a pulse back on the patient relatively quickly within 5-10 minutes. The given the patient's signs and living situation, the paramedics were on scene for approximately 45 minutes secondary to a difficult extrication. When they got the patient in the ambulance she lost her pulse, she got CPR via the Kelvin and 2 more rounds of epinephrine. When they arrived in the emergency department the Kelvin device was off and patient had a pulse. Only transfer the patient to the stretcher she lost her pulse. She was given a total of 4 rounds of epinephrine and lost her pulse twice. She was then started on Levophed, epinephrine drip and given a L of normal saline bolus and maintained h er pulse and her blood pressure. I did get information from the patient's family. The patient's significant other states that the patient was complaining of itchiness has had a cough for approximately 1 month. The patient went to bed. The patient's significant other brought her a cup of coffee that she did not drink when he checked back in on her approximately 15 minutes later he determined that she was unresponsive and called an ambulance. Related Data Previous Rx's Medication Instructions Recorded miscellaneous medical supply 1 ea miscellaneous DAILY #1 ea 12/17/21 nebulizers (AeroEclipse II #1 ea 12/22/21 Nebulizer) blood pressure monitor #1 ea 04/06/22 cholecalciferol (vitamin D3) 25 25 mcg PO DAILY 90 days #90 caps 04/06/22 mcg (1,000 unit) capsule escitalopram oxalate 10 mg tablet 10 mg PO DAILY #90 tabs 04/06/22 hydroxyzine HCl 10 mg tablet 10 mg PO BEDTIME PRN anxiety 90 06/07/22 days #90 tabs omeprazole 20 mg capsule,delayed 20 mg PO DAILY 90 days #90 caps 04/06/22 release furosemide 40 mg tablet (Lasix) 40 mg PO DAILY 90 days #90 tabs 04/07/22 isosorbide mononitrate 60 mg 60 mg PO DAILY 90 days #90 tabs 04/07/22 tablet,extended release 24 hr lisinopril 20 mg tablet 20 mg PO DAILY 90 days #90 tabs 04/07/22 simvastatin 40 mg tablet 40 mg PO BEDTIME 90 days #90 tabs 04/07/22 albuterol sulfate 2.5 mg/3 mL 2.5 mg (3 mL) inhalation Q4-6H PRN 09/13/22 (0.083 %) solution for nebulization bronchospasm #75 mL albuterol sulfate 90 mcg/actuation 2 puff PO Q6H PRN bronchospasm #18 09/13/22 aerosol inhaler (ProAir HFA) grams fluticasone propionate 44 2 puff inhalation BID 30 days 09/13/22 mcg/actuation HFA aerosol inhaler #10.6 grams (Flovent HFA) Allergies Allergy/AdvReac Type Severity Reaction Status Date / Time Penicillins Allergy Intermediate DIFFICULTY Verified 09/30/22 14:30 BREATHING Review of Systems Review of Systems: Yes unobtainable due to endotracheal tube PMFSH Past Medical History Medical History Allergic rhinitis Arthritis Asthma Chronic GERD Essential hypertension Fibromyalgia Heart failure Hypertension Lumbar spondylosis Moderate persistent asthma, uncomplicated Moderate recurrent major depression Pure hypercholesterolemia Surgical History Hx of cholecystectomy Hx of hysterectomy Hx of tubal ligation Family History Family History Father Heart attack Mother Ovarian cancer Family/Other Substance use disorder Mental health disorder Social History Social History Household Members: Spouse Housing: Apartment Alcohol intake: current Alcohol intake frequency: holidays/special occasions only Alcohol type: beer Patient Tobacco Use Status: Current everyday Tobacco user Tobacco use type: Cigarette Cigarettes Per Day: 0.5 e-Cigarette/Vaping Use: Never Used Second Hand Smoke Exposure: No Advance Directives: No Advance Directives Information Provided: Yes service: No Current occupational status: disabled Cognitive needs: No Hearing needs: No Vision needs: No Physical Exam Vital Signs: Vital Signs: Last Vital Signs Temp 91.0 F L 12/08/22 21:17 Pulse 56 12/08/22 22:53 Resp 18 12/08/22 21:46 BP 118/46 L 12/08/22 22:53 Pulse Ox 91 L 12/08/22 21:46 O2 Del Method 12/08/22 21:17 FiO2 80 12/08/22 19:55 BMI result Body Mass Index 44.8 General: Patient is not responding to verbal or painful stimuli , she is intubated with an I gel device, she has agonal spontaneous breathing and has symmetric breath sounds bilaterally with bag valve mask support HEENT: Patient's head is normal cephalic and atraumatic, pupils are fixed and dilated, mouth during intubation by me revealed significant amount of secretions in the posterior pharynx with blood in the posterior pharynx, patient has swelling of her epiglottis and parapharyngeal structures Neck: No trauma Lungs: Breath sounds symmetric with bag-valve assist Heart: Faint heart sounds Abdomen: Obese Extremities: No significant trauma Neurologic exam: No spontaneous movement, no response to verbal or painful stimuli Medications Administered Generic Name Dose Route Start Last Admin Trade Name Freq PRN Reason Stop Dose Admin Epinephrine 5 mg/ Dextrose 255 mls @ 0 mls/hr 12/08/22 18:30 12/08/22 22:53 IVCONT 0 mcg/kg/min .Q0M GUILHERME 0 mls/hr Titration Protocol Per Protocol Norepinephrine Bitartrate 8 mg in 250 mls @ 0 mls/hr 12/08/22 19:00 12/08/22 21:52 Levophed IV 0 mcg/kg/min .Q0M GUILHERME 0 mls/hr Titration Protocol Per Protocol Propofol 1,000 mg in 100 mls @ 0 mls/hr 12/08/22 19:30 12/08/22 23:31 Diprivan IVCONT 0 mcg/kg/min .Q0M GUILHERME 0 mls/hr Titration Protocol Per Protocol Fentanyl 1,000 mcg in 100 mls @ 0 mls/hr 12/08/22 21:00 12/08/22 23:15 Sublimaze/Ns IVCONT 100 mcg/hr .Q0M GUILHERME 10 mls/hr Administration Protocol Per Protocol Discontinued Medications Generic Name Dose Route Start Last Admin Trade Name Kirk PRN Reason Stop Dose Admin Fentanyl 200 mcg 12/08/22 20:49 12/08/22 23:16 Fentanyl Citrate/Pf 100 Mcg/2 Ml Vial IVPUSH 12/08/22 20:50 200 mcg ONCE ONE Administration Protocol Hydrocortisone Sodium Succinate 100 mg 12/08/22 19:35 12/08/22 19:42 Hydrocortisone Sod Succ/Pf 100 Mg Vial IVPUSH 12/08/22 19:36 100 mg ONCE ONE Administration Sodium Chloride 1,000 mls @ 999 mls/hr 12/08/22 18:46 12/08/22 20:46 Ns IV 12/08/22 19:46 Infused .Q1H1M STA Infusion Cefepime HCl 2 gm/ Sodium 50 mls @ 100 mls/hr 12/08/22 19:52 12/08/22 21:45 Chloride IV 12/08/22 20:21 Not Given ONCE ONE Sodium Bicarbonate 150 meq 12/08/22 19:40 12/08/22 19:44 Sodium Bicarbonate 8.4% 50 Meq/50 Ml Syringe IVPUSH 12/08/22 19:41 150 meq ONCE ONE Administration Medical Decision Making Medical Decision Making MDM Narrative: 52-year-old female with complicated past medical history including diabetes, hypertension, hyperlipidemia, asthma, congestive heart failure, aortic stenosis who was found unresponsive by family members with an unknown down down estimated to be 10-15 minute, paramedics found the patient to be asystolic, not breathing spontaneously, no pulses. Paramedics were able to achieve ROSC after 4 doses of epinephrine IV, CPR and intubation in I Gel. The patient did lose her pulse 2 times here in the emergency department but we were able to achieve ROSC and I did intubate the patient with a 7.0 endotracheal tube. Patient is currently on IV epinephrine and IV Levophed. I did discuss the patient's presentation with the covering pattern painter, Dr. Ndiaye and the physician trust administrative assistant intensive, Mr. Boogie Tavarez who came to the emergency department and evaluated the patient. Both Mr. Tavarez and I have discussed how critically ill this patient is with the patient's family members. 2000: The patient's chest x-ray revealed increased interstitial markings in the right lung compared to the left and concerned that she may have an aspiration pneumonia therefore she was ordered to get cefepime 2 mg IV and vancomycin 2 g IV. Patient's ABG revealed a very low pH is 6.99 and the patient was ordered to get 3 amps of bicarb IV push. Patient's temperature is 90 degrees therefore she was ordered to get a Benjamin Hugger and stress dose steroids hydrocortisone 100 mg IV. Patient also had a low glucose is given 1 amp of D50 IV. Patient will be started on a propofol drip for sedation. 2199: The physician trust administrative assistant pattern painter, Tamar Boogie Tavarez had a long discussion with the family regarding the patient's prognosis. After this discussion it was felt that the patient should be made comfort measures only. The family would like the patient to be on the ventilator and on medications unt il all the family members can come to the hospital and say goodbye to the patient. Once family was ready, the patient's pressors will be stopped, she will be extubated, she will be continued on propofol , she will be given a dose of fentanyl 200 mcg IV and she will be kept on a fentanyl drip until she expires 233: The patient was noted to be asystolic on her monitor, I did evaluate the patient, she had no pulses, she had no spontaneous respirations, there are no auscultable heart sounds therefore she was pronounced at 23:31 hours. The family was present and was made aware of the patient's . This as a natural therefore the medical equipment sales was not contacted. Differential Diagnosis 1999: Differential diagnosis includes was not limited to respiratory arrest, cardiac arrest, pulmonary embolism, congestive heart failure, aspiration pneumonia Consult Healthcare Provider Management of the patient was discussed with: Linderman Operator (ICU pattern painter) Lab Data [facility] Lab Attestation statement: I reviewed the patient's lab results. 12/08/22 19:32 12/08/22 19:32 Labs: Lab Results 12/08/22 12/08/22 12/08/22 Range/Units 18:23 18:25 18:32 WBC (4.8-10.8) X10*3/uL RBC (4.20-5.50) X10*6/uL Hgb (12.0-16.0) g/dl Hct (37.0-47.0) % MCV (80.0-98.0) fL MCH (27.0-33.0) pg MCHC (31.0-35.0) g/dl RDW (11.0-16.0) % Plt Count (160-400) X10*3/uL MPV (9.4-12.3) fL Immature Gran % (Auto) Neut % (Auto) Lymph % (Auto) [place] % (Auto) Eos % (Auto) Baso % (Auto) Lymph # (Auto) [place] # (Auto) Eos # (Auto) Baso # (Auto) Abs Immat Gran (auto) Absolute Neuts (auto) Absolute Nucleated RBC (0.0-0.012) X10*3/uL Nucleated RBC % (auto) (0.0-0.2) /100WBC Neutrophils % (Manual) (45-73) % Band Neutrophils % (3-5) % Lymphocytes % (Manual) (20-40) % Monocytes % (Manual) (2-11) % Basophils % (Manual) (0-2) % Metamyelocytes % % Myelocytes % % Abs Neuts (Manual) (2.0-8.3) X10*3/uL Lymphocytes # (Manual) (1.2-4.9) X10*3/uL Monocytes # (Manual) (0.1-1.2) X10*3/uL Basophils # (Manual) (0.0-0.2) X10*3/uL Metamyelocytes # X10*3/uL Myelocytes # X10*/uL Nucleated RBCs (0-0) /100WBC Platelet Estimate (NORMAL) Large Platelets Plt Morphology Comment RBC Morphology Macrocytosis /OIF PT (10.0-13.1) SEC INR (0.9-1.1) APTT (26.0-36.4) SEC O2 Saturation % ABG pH at Pt Temp (7.35-7.45) ABG pCO2 at Pt Temp (32-45) mmHg ABG pO2 at Pt Temp (83-108) mmHg ABG HCO3 (22-26) mmol/L ABG Base Excess (Actual) mmol/L Sodium (135-145) mmol/L Potassium (3.3-5.1) mmol/L Chloride (96-108) mmol/L Carbon Dioxide (22-29) mmol/L Anion Gap (12-20) BUN (9-16) mg/dL Creatinine (0.5-1.4) mg/dL Estim Creat Clear Calc Estimated GFR POC Glucose < 10 L* < 10 L* 137 H (60-115) mg/dL Random Glucose (60-115) mg/dL Lactic Acid (0.5-2.0) mmol/L Calcium (8.4-10.2) mg/dL Total Bilirubin (0.0-1.0) mg/dL AST (5-31) U/L ALT (0-31) U/L Alkaline Phosphatase (39-117) U/L Total Creatine Kinase (26-140) U/L Troponin I High Sens (<3.5-17.0) ng/L Total Protein (6.5-8.0) g/dL Albumin (3.5-5.0) g/dL Lipase (8-78) U/L Urine Color Urine Appearance Urine pH (5.0-9.0) Ur Specific [place] (1.005-1.025) Urine Protein (Neg-Trace) mg/dL Urine Glucose (UA) (Negative) mg/dL Urine Ketones (Negative) mg/dL Urine Blood (Negative) Urine Nitrite (Negative) Ur Leukocyte Esterase (Negative) Urine RBC (0-2) /HPF Urine WBC (0-5) /HPF Ur Squamous Epith Cells (0-2) /HPF Urine Bacteria (None Seen) Hyaline Casts (0-2) /LPF Urine Opiates Screen (Not Detect) Urine Fentanyl Screen (Not Detect) Ur Barbiturates Screen (Not Detect) Ur Phencyclidine Scrn (Not Detect) Ur Amphetamines Screen (Not Detect) U Benzodiazepines Scrn (Not Detect) Urine Cocaine Screen (Not Detect) U Marijuana (THC) Screen (Not Detect) Ethyl Alcohol mg/dL Influenza Type A (PCR) (Negative) Influenza Type B (PCR) (Negative) RSV RNA Qual (PCR) (Negative) SARS-CoV-2 RNA (RT-PCR) (Negative) 12/08/22 12/08/22 12/08/22 Range/Units 18:52 19:25 19:31 WBC (4.8-10.8) X10*3/uL RBC (4.20-5.50) X10*6/uL Hgb (12.0-16.0) g/dl Hct (37.0-47.0) % MCV (80.0-98.0) fL MCH (27.0-33.0) pg MCHC (31.0-35.0) g/dl RDW (11.0-16.0) % Plt Count (160-400) X10*3/uL MPV (9.4-12.3) fL Immature Gran % (Auto) Neut % (Auto) Lymph % (Auto) [place] % (Auto) Eos % (Auto) Baso % (Auto) Lymph # (Auto) [place] # (Auto) Eos # (Auto) Baso # (Auto) Abs Immat Gran (auto) Absolute Neuts (auto) Absolute Nucleated RBC (0.0-0.012) X10*3/uL Nucleated RBC % (auto) (0.0-0.2) /100WBC Neutrophils % (Manual) (45-73) % Band Neutrophils % (3-5) % Lymphocytes % (Manual) (20-40) % Monocytes % (Manual) (2-11) % Basophils % (Manual) (0-2) % Metamyelocytes % % Myelocytes % % Abs Neuts (Manual) (2.0-8.3) X10*3/uL Lymphocytes # (Manual) (1.2-4.9) X10*3/uL Monocytes # (Manual) (0.1-1.2) X10*3/uL Basophils # (Manual) (0.0-0.2) X10*3/uL Metamyelocytes # X10*3/uL Myelocytes # X10*/uL Nucleated RBCs (0-0) /100WBC Platelet Estimate (NORMAL) Large Platelets Plt Morphology Comment RBC Morphology Macrocytosis /OIF PT (10.0-13.1) SEC INR (0.9-1.1) APTT (26.0-36.4) SEC O2 Saturation 92.0 % ABG pH at Pt Temp 6.94 L* (7.35-7.45) ABG pCO2 at Pt Temp 55 H (32-45) mmHg ABG pO2 at Pt Temp 78 L (83-108) mmHg ABG HCO3 12 L (22-26) mmol/L ABG Base Excess (Actual) -19.8 mmol/L Sodium (135-145) mmol/L Potassium (3.3-5.1) mmol/L Chloride (96-108) mmol/L Carbon Dioxide (22-29) mmol/L Anion Gap (12-20) BUN (9-16) mg/dL Creatinine (0.5-1.4) mg/dL Estim Creat Clear Calc Estimated GFR POC Glucose 134 H (60-115) mg/dL Random Glucose (60-115) mg/dL Lactic Acid (0.5-2.0) mmol/L Calcium (8.4-10.2) mg/dL Total Bilirubin (0.0-1.0) mg/dL AST (5-31) U/L ALT (0-31) U/L Alkaline Phosphatase (39-117) U/L Total Creatine Kinase (26-140) U/L Troponin I High Sens (<3.5-17.0) ng/L Total Protein (6.5-8.0) g/dL Albumin (3.5-5.0) g/dL Lipase (8-78) U/L Urine Color Yellow Urine Appearance Clear Urine pH 5.0 (5.0-9.0) Ur Specific [place] 1.010 (1.005-1.025) Urine Protein 100 (2+) H (Neg-Trace) mg/dL Urine Glucose (UA) 500 H (Negative) mg/dL Urine Ketones Negative (Negative) mg/dL Urine Blood Trace H (Negative) Urine Nitrite Negative (Negative) Ur Leukocyte Esterase Negative (Negative) Urine RBC 0-2 (0-2) /HPF Urine WBC 0-5 (0-5) /HPF Ur Squamous Epith Cells 0-2 (0-2) /HPF Urine Bacteria None Seen (None Seen) Hyaline Casts >20 (0-2) /LPF Urine Opiates Screen (Not Detect) Urine Fentanyl Screen (Not Detect) Ur Barbiturates Screen (Not Detect) Ur Phencyclidine Scrn (Not Detect) Ur Amphetamines Screen (Not Detect) U Benzodiazepines Scrn (Not Detect) Urine Cocaine Screen (Not Detect) U Marijuana (THC) Screen (Not Detect) Ethyl Alcohol mg/dL Influenza Type A (PCR) (Negative) Influenza Type B (PCR) (Negative) RSV RNA Qual (PCR) (Negative) SARS-CoV-2 RNA (RT-PCR) (Negative) 12/08/22 12/08/22 12/08/22 Range/Units 19:31 19:32 19:32 WBC 13.5 H (4.8-10.8) X10*3/uL RBC 4.11 L (4.20-5.50) X10*6/uL Hgb 12.8 (12.0-16.0) g/dl Hct 41.9 (37.0-47.0) % MCV 101.9 H (80.0-98.0) fL MCH 31.1 (27.0-33.0) pg MCHC 30.5 L (31.0-35.0) g/dl RDW 14.6 (11.0-16.0) % Plt Count 65 L D (160-400) X10*3/uL MPV 9.2 L (9.4-12.3) fL Immature Gran % (Auto) Cancelled Neut % (Auto) Cancelled Lymph % (Auto) Cancelled [place] % (Auto) Cancelled Eos % (Auto) Cancelled Baso % (Auto) Cancelled Lymph # (Auto) Cancelled [place] # (Auto) Cancelled Eos # (Auto) Cancelled Baso # (Auto) Cancelled Abs Immat Gran (auto) Cancelled Absolute Neuts (auto) Cancelled Absolute Nucleated RBC 0.360 H (0.0-0.012) X10*3/uL Nucleated RBC % (auto) 2.7 H (0.0-0.2) /100WBC Neutrophils % (Manual) 45 (45-73) % Band Neutrophils % 25 H (3-5) % Lymphocytes % (Manual) 10 L (20-40) % Monocytes % (Manual) 6 (2-11) % Basophils % (Manual) 1 (0-2) % Metamyelocytes % 12 % Myelocytes % 1 % Abs Neuts (Manual) 9.5 H (2.0-8.3) X10*3/uL Lymphocytes # (Manual) 1.4 (1.2-4.9) X10*3/uL Monocytes # (Manual) 0.8 (0.1-1.2) X10*3/uL Basophils # (Manual) 0.1 (0.0-0.2) X10*3/uL Metamyelocytes # 1.6 X10*3/uL Myelocytes # 0.1 X10*/uL Nucleated RBCs 4 H (0-0) /100WBC Platelet Estimate DECREASED (NORMAL) Large Platelets PRESENT Plt Morphology Comment NOTED RBC Morphology NOTED Macrocytosis 1+ (5-14) /OIF PT 21.6 H (10.0-13.1) SEC INR 1.8 H (0.9-1.1) APTT 52.7 H (26.0-36.4) SEC O2 Saturation % ABG pH at Pt Temp (7.35-7.45) ABG pCO2 at Pt Temp (32-45) mmHg ABG pO2 at Pt Temp (83-108) mmHg ABG HCO3 (22-26) mmol/L ABG Base Excess (Actual) mmol/L Sodium (135-145) mmol/L Potassium (3.3-5.1) mmol/L Chloride (96-108) mmol/L Carbon Dioxide (22-29) mmol/L Anion Gap (12-20) BUN (9-16) mg/dL Creatinine (0.5-1.4) mg/dL Estim Creat Clear Calc Estimated GFR POC Glucose (60-115) mg/dL Random Glucose (60-115) mg/dL Lactic Acid (0.5-2.0) mmol/L Calcium (8.4-10.2) mg/dL Total Bilirubin (0.0-1.0) mg/dL AST (5-31) U/L ALT (0-31) U/L Alkaline Phosphatase (39-117) U/L Total Creatine Kinase (26-140) U/L Troponin I High Sens (<3.5-17.0) ng/L Total Protein (6.5-8.0) g/dL Albumin (3.5-5.0) g/dL Lipase (8-78) U/L Urine Color Urine Appearance Urine pH (5.0-9.0) Ur Specific [place] (1.005-1.025) Urine Protein (Neg-Trace) mg/dL Urine Glucose (UA) (Negative) mg/dL Urine Ketones (Negative) mg/dL Urine Blood (Negative) Urine Nitrite (Negative) Ur Leukocyte Esterase (Negative) Urine RBC (0-2) /HPF Urine WBC (0-5) /HPF Ur Squamous Epith Cells (0-2) /HPF Urine Bacteria (None Seen) Hyaline Casts (0-2) /LPF Urine Opiates Screen Not Detected (Not Detect) Urine Fentanyl Screen POSITIVE H (Not Detect) Ur Barbiturates Screen Not Detected (Not Detect) Ur Phencyclidine Scrn Not Detected (Not Detect) Ur Amphetamines Screen Not Detected (Not Detect) U Benzodiazepines Scrn Not Detected (Not Detect) Urine Cocaine Screen POSITIVE H (Not Detect) U Marijuana (THC) Screen POSITIVE H (Not Detect) Ethyl Alcohol mg/dL Influenza Type A (PCR) (Negative) Influenza Type B (PCR) (Negative) RSV RNA Qual (PCR) (Negative) SARS-CoV-2 RNA (RT-PCR) (Negative) 12/08/22 12/08/22 12/08/22 Range/Units 19:32 19:32 19:32 WBC (4.8-10.8) X10*3/uL RBC (4.20-5.50) X10*6/uL Hgb (12.0-16.0) g/dl Hct (37.0-47.0) % MCV (80.0-98.0) fL MCH (27.0-33.0) pg MCHC (31.0-35.0) g/dl RDW (11.0-16.0) % Plt Count (160-400) X10*3/uL MPV (9.4-12.3) fL Immature Gran % (Auto) Neut % (Auto) Lymph % (Auto) [place] % (Auto) Eos % (Auto) Baso % (Auto) Lymph # (Auto) [place] # (Auto) Eos # (Auto) Baso # (Auto) Abs Immat Gran (auto) Absolute Neuts (auto) Absolute Nucleated RBC (0.0-0.012) X10*3/uL Nucleated RBC % (auto) (0.0-0.2) /100WBC Neutrophils % (Manual) (45-73) % Band Neutrophils % (3-5) % Lymphocytes % (Manual) (20-40) % Monocytes % (Manual) (2-11) % Basophils % (Manual) (0-2) % Metamyelocytes % % Myelocytes % % Abs Neuts (Manual) (2.0-8.3) X10*3/uL Lymphocytes # (Manual) (1.2-4.9) X10*3/uL Monocytes # (Manual) (0.1-1.2) X10*3/uL Basophils # (Manual) (0.0-0.2) X10*3/uL Metamyelocytes # X10*3/uL Myelocytes # X10*/uL Nucleated RBCs (0-0) /100WBC Platelet Estimate (NORMAL) Large Platelets Plt Morphology Comment RBC Morphology Macrocytosis /OIF PT (10.0-13.1) SEC INR (0.9-1.1) APTT (26.0-36.4) SEC O2 Saturation % ABG pH at Pt Temp (7.35-7.45) ABG pCO2 at Pt Temp (32-45) mmHg ABG pO2 at Pt Temp (83-108) mmHg ABG HCO3 (22-26) mmol/L ABG Base Excess (Actual) mmol/L Sodium 140 (135-145) mmol/L Potassium 4.9 (3.3-5.1) mmol/L Chloride 107 (96-108) mmol/L Carbon Dioxide 9 L* D (22-29) mmol/L Anion Gap 29 H (12-20) BUN 23 H (9-16) mg/dL Creatinine 2.40 H (0.5-1.4) mg/dL Estim Creat Clear Calc 32.6 Estimated GFR 21 POC Glucose (60-115) mg/dL Random Glucose 138 H (60-115) mg/dL Lactic Acid 10.4 H* (0.5-2.0) mmol/L Calcium 7.6 L D (8.4-10.2) mg/dL Total Bilirubin 0.9 (0.0-1.0) mg/dL AST > 4202 H (5-31) U/L ALT 4362 H (0-31) U/L Alkaline Phosphatase 187 H (39-117) U/L Total Creatine Kinase 168 H (26-140) U/L Troponin I High Sens 271.0 H* (<3.5-17.0) ng/L Total Protein 6.0 L (6.5-8.0) g/dL Albumin 3.0 L (3.5-5.0) g/dL Lipase 187 H (8-78) U/L Urine Color Urine Appearance Urine pH (5.0-9.0) Ur Specific [place] (1.005-1.025) Urine Protein (Neg-Trace) mg/dL Urine Glucose (UA) (Negative) mg/dL Urine Ketones (Negative) mg/dL Urine Blood (Negative) Urine Nitrite (Negative) Ur Leukocyte Esterase (Negative) Urine RBC (0-2) /HPF Urine WBC (0-5) /HPF Ur Squamous Epith Cells (0-2) /HPF Urine Bacteria (None Seen) Hyaline Casts (0-2) /LPF Urine Opiates Screen (Not Detect) Urine Fentanyl Screen (Not Detect) Ur Barbiturates Screen (Not Detect) Ur Phencyclidine Scrn (Not Detect) Ur Amphetamines Screen (Not Detect) U Benzodiazepines Scrn (Not Detect) Urine Cocaine Screen (Not Detect) U Marijuana (THC) Screen (Not Detect) Ethyl Alcohol 15 mg/dL Influenza Type A (PCR) (Negative) Influenza Type B (PCR) (Negative) RSV RNA Qual (PCR) (Negative) SARS-CoV-2 RNA (RT-PCR) (Negative) 12/08/22 Range/Units 19:32 WBC (4.8-10.8) X10*3/uL RBC (4.20-5.50) X10*6/uL Hgb (12.0-16.0) g/dl Hct (37.0-47.0) % MCV (80.0-98.0) fL MCH (27.0-33.0) pg MCHC (31.0-35.0) g/dl RDW (11.0-16.0) % Plt Count (160-400) X10*3/uL MPV (9.4-12.3) fL Immature Gran % (Auto) Neut % (Auto) Lymph % (Auto) [place] % (Auto) Eos % (Auto) Baso % (Auto) Lymph # (Auto) [place] # (Auto) Eos # (Auto) Baso # (Auto) Abs Immat Gran (auto) Absolute Neuts (auto) Absolute Nucleated RBC (0.0-0.012) X10*3/uL Nucleated RBC % (auto) (0.0-0.2) /100WBC Neutrophils % (Manual) (45-73) % Band Neutrophils % (3-5) % Lymphocytes % (Manual) (20-40) % Monocytes % (Manual) (2-11) % Basophils % (Manual) (0-2) % Metamyelocytes % % Myelocytes % % Abs Neuts (Manual) (2.0-8.3) X10*3/uL Lymphocytes # (Manual) (1.2-4.9) X10*3/uL Monocytes # (Manual) (0.1-1.2) X10*3/uL Basophils # (Manual) (0.0-0.2) X10*3/uL Metamyelocytes # X10*3/uL Myelocytes # X10*/uL Nucleated RBCs (0-0) /100WBC Platelet Estimate (NORMAL) Large Platelets Plt Morphology Comment RBC Morphology Macrocytosis /OIF PT (10.0-13.1) SEC INR (0.9-1.1) APTT (26.0-36.4) SEC O2 Saturation % ABG pH at Pt Temp (7.35-7.45) ABG pCO2 at Pt Temp (32-45) mmHg ABG pO2 at Pt Temp (83-108) mmHg ABG HCO3 (22-26) mmol/L ABG Base Excess (Actual) mmol/L Sodium (135-145) mmol/L Potassium (3.3-5.1) mmol/L Chloride (96-108) mmol/L Carbon Dioxide (22-29) mmol/L Anion Gap (12-20) BUN (9-16) mg/dL Creatinine (0.5-1.4) mg/dL Estim Creat Clear Calc Estimated GFR POC Glucose (60-115) mg/dL Random Glucose (60-115) mg/dL Lactic Acid (0.5-2.0) mmol/L Calcium (8.4-10.2) mg/dL Total Bilirubin (0.0-1.0) mg/dL AST (5-31) U/L ALT (0-31) U/L Alkaline Phosphatase (39-117) U/L Total Creatine Kinase (26-140) U/L Troponin I High Sens (<3.5-17.0) ng/L Total Protein (6.5-8.0) g/dL Albumin (3.5-5.0) g/dL Lipase (8-78) U/L Urine Color Urine Appearance Urine pH (5.0-9.0) Ur Specific [place] (1.005-1.025) Urine Protein (Neg-Trace) mg/dL Urine Glucose (UA) (Negative) mg/dL Urine Ketones (Negative) mg/dL Urine Blood (Negative) Urine Nitrite (Negative) Ur Leukocyte Esterase (Negative) Urine RBC (0-2) /HPF Urine WBC (0-5) /HPF Ur Squamous Epith Cells (0-2) /HPF Urine Bacteria (None Seen) Hyaline Casts (0-2) /LPF Urine Opiates Screen (Not Detect) Urine Fentanyl Screen (Not Detect) Ur Barbiturates Screen (Not Detect) Ur Phencyclidine Scrn (Not Detect) Ur Amphetamines Screen (Not Detect) U Benzodiazepines Scrn (Not Detect) Urine Cocaine Screen (Not Detect) U Marijuana (THC) Screen (Not Detect) Ethyl Alcohol mg/dL Influenza Type A (PCR) NEGATIVE (Negative) Influenza Type B (PCR) NEGATIVE (Negative) RSV RNA Qual (PCR) NEGATIVE (Negative) SARS-CoV-2 RNA (RT-PCR) NEGATIVE (Negative) ABG Data ABG Results: ABG was done while the patient was on the ventilator respiratory rate 18, tidal volume 350, FiO2 80%, peep 10. PH 6.94, pCO2 54, PO2 78, O2 saturation 90%. This represents a metabolic acidosis with significant hypoxia most with a high proxy of most likely attributed to the aspiration pneumonia seen on chest x-ray. Attestation ABG: I personally reviewed and interpreted this ABG as follows: Procedures Intubation Time out performed: Yes sedative: none Laryngoscope: other ([place] scope) ET Tube Size: 7 ET Tube Uncuffed: Yes Tube Secured Depth (cm): 23 Tube Secured Location: lips Tube Placement Confirmation: visualized tube passing through cords and equal breath sounds bilaterally Patient Tolerated Procedure: well Additional Comments: The I gel LMA was removed, the glide scope was placed in the patient's mouth and there was a large amount of secretions and blood which needed to be suction. The patient epiglottis and her laryngeal structures or very edematous. The cords difficult to visualize on the 1st attempt and the patient required more suctioning. The glide scope was withdrawn and the patient was bagged for 30 seconds, her O2 saturation never dropped below 100%. On the 2nd attempt the patient was easily intubated with a 7.0 endotracheal tube which was secured by the respiratory therapist. Critical Care Time Critical Care Time Critical Care Time: Yes Total Critical Care Time: 140 Attestation: Critical Care: The patient was critically ill with a high probability of imminent or life threatening deterioration. I spent greater than 30 minutes of discontinuous time evaluating the patient,delivering critical care at the bedside, discussing and evaluating pertinent data with consultants. Critical care time does not include time spent performing separately billable procedures or teaching. Total time spent performing critical care was 140 minutes. Discharge Plan Discharge Clinical Impression: Cardiac arrest due to respiratory disorder, Aspiration pneumonia, Patient Disposition: Prescriptions: No Action (DME) AeroEclipse II Nebulizer Misc See Rx Instructions .Route Qty: 1 0RF Rx Instructions: As directed furosemide [Lasix] 40 mg tablet 40 mg PO DAILY 90 Days Qty: 90 1RF simvastatin 40 mg tablet 40 mg PO BEDTIME 90 Days Qty: 90 1RF isosorbide mononitrate 60 mg tablet extended release 24 hr 60 mg PO DAILY 90 Days Qty: 90 1RF lisinopril 20 mg tablet 20 mg PO DAILY 90 Days Qty: 90 1RF Protocol: Hold for SBP< HOLD for SBP < : 90 albuterol sulfate [ProAir HFA] 90 mcg/actuation HFA aerosol inhaler 2 puff PO Q6H PRN (Reason: bronchospasm) Qty: 18 8RF albuterol sulfate 2.5 mg /3 mL (0.083 %) solution for nebulization 2.5 mg inhalation Q4-6H PRN (Reason: bronchospasm) Qty: 75 0RF Flovent HFA 44 mcg/actuation HFA aerosol inhaler 2 puff inhalation BID 30 Days Qty: 10.6 6RF Rx Instructions: administer with spacer omeprazole 20 mg capsule,delayed release(DR/EC) 20 mg PO DAILY 90 Days Qty: 90 1RF hydroxyzine HCl 10 mg tablet 10 mg PO BEDTIME PRN (Reason: anxiety) 90 Days Qty: 90 0RF escitalopram oxalate 10 mg tablet 10 mg PO DAILY Qty: 90 0RF cholecalciferol (vitamin D3) 25 mcg (1,000 unit) capsule 25 mcg PO DAILY 90 Days Qty: 90 1RF (DME) blood pressure monitor Kit See Rx Instructions .Route Qty: 1 0RF Rx Instructions: As directed miscellaneous medical supply Misc 1 ea miscellaneous DAILY Qty: 1 0RF Rx Instructions: nebulizer machine with tubing
[2022-12-08 19:04] LABS: Glucose, Whole Blood < 10 mg/dL (60-115)
[2022-12-08 19:04] LABS: Glucose, Whole Blood 134 mg/dL (60-115)
[2022-12-08 19:04] LABS: Glucose, Whole Blood 137 mg/dL (60-115)
[2022-12-08 19:04] LABS: Glucose, Whole Blood < 10 mg/dL (60-115)
--- NOTE | 2022-12-08 19:04 | ECG_ITS ---
Test Reason : CA Blood Pressure : / mmHG Vent. Rate : 053 BPM Atrial Rate : 053 BPM P-R Int : 218 ms QRS Dur : 086 ms QT Int : 540 ms P-R-T Axes : 000 118 166 degrees QTc Int : 506 ms Sinus bradycardia with 1st degree A-V block Biventricular hypertrophy Lateral infarct , age undetermined ST & T wave abnormality, consider anterior ischemia Prolonged QT Abnormal ECG When compared with ECG of 08-DEC-2021 13:40, LA interval has increased Vent. rate has decreased BY 35 BPM Left bundle branch block is no longer Present Lateral infarct is now Present Referred By: Brady Beard Electronically Signed By:CLEOPATRA BRYANT MD
[2022-12-08 19:33] LABS: ABG Base Excess -19.8 mmol/L; ABG HCO3 12 mmol/L (22-26); ABG pCO2 55 mmHg (32-45); ABG pH 6.94 (7.35-7.45); ABG pO2 78 mmHg (83-108)
[2022-12-08] MEDS: propofoL 1,000 MG/100 ML VIAL 26.69 MG IVCONT ×2 (19:42→21:46)
[2022-12-08] MEDS: Hydrocortisone Sod Succ/PF 100 MG VIAL IVPUSH (19:42)
[2022-12-08] MEDS: Sodium Bicarbonate 8.4% 50 MEQ/50 ML SYRINGE 150 MEQ IVPUSH (19:44)
[2022-12-08] MEDS: 0.9 % Sodium Chloride 1,000 ML 999 ML IV (19:45)
[2022-12-08 19:46] LABS: Mean Corpuscular HGB Conc 30.5 g/dl (31.0-35.0); Mean Corpuscular Hemoglobin 31.1 pg (27.0-33.0); Mean Corpuscular Volume 101.9 fL (80.0-98.0); PLT CLUMP 1
[2022-12-08] MEDS: EPINEPHrine 5 MG in Dextrose 5 % 250 ML 68.05 MG IVCONT ×2 (19:46→22:51)
[2022-12-08 19:48] LABS: Hematocrit 41.9 % (37.0-47.0); Hemoglobin 12.8 g/dl (12.0-16.0); Mean Platelet Volume 9.2 fL (9.4-12.3); Red Blood Count 4.11 X10*6/uL (4.20-5.50); Red Cell Distribution Width 14.6 % (11.0-16.0)
[2022-12-08] MEDS: Norepinephrine Bitartrate/D5W 8 MG/250 ML PLAST..BAG 104.25 MG IV (19:49)
[2022-12-08 19:50] LABS: NRBC Pct Auto 2.7 /100WBC (0.0-0.2)
[2022-12-08 19:51] LABS: Appearance Urine Clear; Color Urine Yellow; Glucose Urine UA 500 mg/dL (Negative); Leukocyte Esterase Urine Negative (Negative); Nitrite Urine Negative (Negative); UMIC TRIGGER UACC YES; Urine Blood Trace (Negative); Urine Ketones Negative (Negative); Urine Protein 100 (2+) mg/dL (Neg-Trace)
--- NOTE | 2022-12-08 19:55 | PC.NURSE ---
Assumed care for pt. Boogie ELIAS at bedside. O2 decreased to 60%. O2 sat 95% RR 18. BP 204/66 Map 116 HR 57 Core temp 90.3F. Will keep miranda hugger until temp of 96F is reached per verbal order of Boogie ELIAS. Norepi running at 0.5mcg. Epi running at 0.8mcg. Propofol running at 40mcg. 16G temp sensing lux in place. 100cc of clear yellow urine in collection bag.
[2022-12-08 20:02] LABS: Bacteria Urine None Seen (None Seen); Hyaline Casts Urine >20 /LPF (0-2); RBC Urine 0-2 /HPF (0-2); Squamous Epithelial Cell Urine 0-2 /HPF (0-2); WBC Urine 0-5 /HPF (0-5)
[2022-12-08 20:03] LABS: INTERNATIONAL NORM RATIO 1.8 (0.9-1.1); Prothrombin Time 21.6 SEC (10.0-13.1)
[2022-12-08 20:05] LABS: Partial Thromboplastin Time 52.7 SEC (26.0-36.4)
--- OUTSIDE RECORDS SUMMARY | 2022-12-08 20:13 | XMS_ITS ---
:1970 Author Organization [facility] Address [address] [place] [address] Care Team Providers Name Role Phone Carlin Brown Unavailable Unavailable PROBLEMS Unknown Problems ALLERGIES No Information ENCOUNTERS Encounter Location Date Diagnosis [facility] [id number] [place] [address] [facility] [address] [place], [id number] [facility] [address], [place] Aug, [id number] [facility] [address], [place] Mar, [id number] IMMUNIZATIONS No Known Immunizations SOCIAL HISTORY Never Assessed REASON FOR REFERRAL FUNCTIONAL STATUS PLAN OF CARE VITAL SIGNS MEDICATIONS Unknown Medications PROCEDURES No Known procedures RESULTS No Results REASON FOR VISIT Pt no show, Patient presents today for a feeling of something in stomach Insurance Providers [facility] Health Member Patient Patient Patient Patient Patient Subscriber Subscriber Subscriber Group Insurance Plan Plan Plan Plan ID Relationship Address Phone Name Date of ID Name Date of No Type Insurance Insurance Insurance Coverage to Subscriber Address Phone Name Dates [employer] [phone] [employer] self [place] [id number] Health [id number] Health [address] M[place]ELYN Plan [facility] Plan [id number] MEDICAID [id number] MEDICAID self REJI [id number] OF [place] [id number] [address] OF [place] H [place] [address] [place] [phone]
[2022-12-08 20:15] LABS: Platelet Count 65 X10*3/uL (160-400); White Blood Count 13.5 X10*3/uL (4.8-10.8)
[2022-12-08 20:20] LABS: Neutrophils Percent Manual 45 % (45-73)
[2022-12-08 20:22] LABS: Band Neutrophils Percent 25 % (3-5); Basophils Abs Manual 0.1 X10*3/uL (0.0-0.2); Basophils Percent Manual 1 % (0-2); Lymphocytes Absolute Manual 1.4 X10*3/uL (1.2-4.9); Lymphocytes Percent Manual 10 % (20-40); Metamyelocytes Absolute 1.6 X10*3/uL; Metamyelocytes Percent 12 %; Monocytes Absolute Manual 0.8 X10*3/uL (0.1-1.2); Monocytes Percent Manual 6 % (2-11); Myelocytes Absolute 0.1 X10*/uL; Myelocytes Percent 1 %; Neutrophils Absolute Manual 9.5 X10*3/uL (2.0-8.3); Nucleated Red Blood Cells 4 /100WBC (0-0); RBC Morphology NOTED
[2022-12-08 20:23] LABS: Large Platelet PRESENT; Macrocytosis 1+ (5-14) /OIF; Platelet Estimate DECREASED (NORMAL); Platelet Morphology Comment NOTED
[2022-12-08 20:26] LABS: Influenza A PCR NEGATIVE (Negative); Influenza B PCR NEGATIVE (Negative); Resp Syncy Virus RNA Qual PCR NEGATIVE (Negative); SARS COV2 PCR INHOUSE NEGATIVE (Negative)
--- NOTE | 2022-12-08 20:31 | PC.NURSE ---
Late Entry: [facility] arrived in ED 4 at 1817. Per ems: pt suffered an unwitnessed cardiac arrest with unknown downtime, starting at approximately 1726. ACLS guidelines were followed. IO access was established in Left tibia. 1st rhythm was Asystole in house. 4 mg of epi 1;10,000 was given per guidelines. Prolong extrication on scene was reported lasting approximately 45 minutes. Upon arrival at [facility], pt had weak thready pulse that ultimately turned into PEA. 182 CPR via Kelvin was restarted. 182 1mg epi 1; 10,000 given via io 182 NO pulse PEA Etco2 37 182 1mg epi given, POC reading low. MD aware 182: temporay rosc- NSR 75, w/ mechanical capture, pt then nancy'd down ETco2 30. Pulses lost. CPR resumed. 182 1mg epi given, POC low confirmed. 1amp d50 given. 182 pulse check: NSR +mechanical capture, HR 60, NSR, RR 18, ETCO2 34, SPO2 98% BP 190/70 1828 20g rt ac 1829 Pulses lost, CPR restarted via kelvin 1830 1mg epi given POC 137 1831 Pulse resumed. +Mech capture, NSR 60, RR10, ETCO2 38, 191/82 1837, Nor epi started per protocol. HR56, SPO2 100, RR10, ETCO2 46 BP 188/88 1838/1839 Failed intubation attempt. Pulse lost. CPR resumed. 1840 1mg epi given 1841 ROSC, +mechanical capture. +intubation. 7.0/24cm at lips. HR 63, BP 142/53 1842: Nor epi increased per verbal order by ED attending 1852 POC 134
[2022-12-08 20:32] LABS: Lactic Acid 10.4 mmol/L (0.5-2.0)
[2022-12-08 20:33] LABS: Alanine Aminotransferase 4362 U/L (0-31); Alkaline Phosphatase 187 U/L (39-117); Anion Gap 29 (12-20); Aspartate Amino Transferase > 4202 U/L (5-31); Bilirubin Total 0.9 mg/dL (0.0-1.0); Blood Urea Nitrogen 23 mg/dL (9-16); Calcium 7.6 mg/dL (8.4-10.2); Carbon Dioxide 9 mmol/L (22-29); Chloride 107 mmol/L (96-108); Creatinine Clr Calc Pharmacy 32.6; Estimated Glomerular Filt Rate 21; Ethanol 15 mg/dL; Glucose Random 138 mg/dL (60-115); Lipase 187 U/L (8-78); Potassium 4.9 mmol/L (3.3-5.1); Sodium 140 mmol/L (135-145)
--- NOTE | 2022-12-08 20:37 | PC.NURSE ---
Critical lab result received. Bicarb 9, Trop 271, LA 10.4. [place] text sent to JADA Gomez
--- NOTE | 2022-12-08 20:45 | PC.NURSE ---
Per Dr. Beard and Keyshawn ELIAS pt is now comfort care. Family at bedside and aware. Family does not want to be present during extubation. Fentanyl drip to be ordered prior to extubation. Will continue to monitor.
--- NOTE | 2022-12-08 21:07 | W.PM.CCCN ---
History of Present Illness Data of Consult Service Date: 12/08/22 Requesting physician: Brady Beard Primary Care Provider: Unknown Physician HPI Reason for consult: RESPIRATORY / CARDIAC ARREST HPI: ?52-year-old female with underlying history of morbid obesity and BMI of 44.8, asthma, arthritis, hypercholesteremia, depression, hypertension, heart failure, GERD, fibromyalgia, arthritis, allergic rhinitis, aortic stenosis, left bundle-branch block, lumbar spondylosis among others.? Presented to our service per consult of the ER provider as the patient was seen? and there after a and witness respiratory/cardiac arrest.? According to the family, the patient had been feeling sick for the past 3-4 days with a cough that was getting worse and she had complained of shortness of breath.? She had gone out of the house and then had gone back, family member offer her coffee, and that is the last time she was seen well, 20 minutes later a family member noted that she did not drink her coffee and she was not responding, they touched her and she was cold and not breathing, 911 was called. EMS personnel had arrived to the scene at 17:26 and noticed the patient had a unknown down time with unresponsive state.? The airway had been secured with SGA, had no pulse and was given for epinephrine doses 1;10.000; 1st rhythm was asystole and got Rosc. ?AI O2 the left TV area had been placed.? His reported the extraction of the patient from the placed took about 45 minutes, the patient had become asystolic again in the ambulance for which more epinephrine had been given.? On arrival to the ER, the patient was in PA and had no pulse, Kelvin had been placed in ACLS protocol had been followed. ?Several more rounds of epinephrine and other medications had been started getting different rhythms from bradycardia to sinus rhythm which was nonsustained and kept going back to PEA.? Finally after 24 minutes of CPR and ACLS intervention they noticed that the patient was in normal sinus rhythm, the patient was intubated with a 7.0 endotracheal to a 24 at the lips and she was placed on the vent. ?At this time will consulted to admit the patient to the ICU, no further workup was available. Upon arriving to room, it was evident that the patient was cold; ?her skin was mottled, cyanosis of the bilateral fingers and toes and at this time on Levophed and epinephrine drip with a heart rate 52 beats per minute, connected to the vent with 100% FiO2 and O2 sat of 94%.? Seems the patient has oral bleeding as there was copious amount of fresh blood noted within the oral cavity.? As described on exam the patient's pupils appear blown common reactive in eyes are glassy.? Given the prolonged CPR, recurrent events and the fact that the patient is completely unresponsive almost 3 hours after the initial event despite of the lack of any sedatives as well as other exam findings is concerning.? An ABG obtained by me the his seen shows a pH of 6.9, pCO2 55, PO2 78, HC03 of 12. At this point the family had wanted to talk to me and a lengthy discussion will take place to address goals of care for this patient. ROS:? UNABLE TO OBTAIN PATIENT INTUBATED Past Medical History:? As above Past Surgical History:? Hysterectomy, tubal ligation cholecystectomy Family history:? Per records patient's mom had history of substance abuse and mental health issues, ovarian cancer.? Her father had a heart attack. Social History:? Lives at home in an apartment, there is history of frequent alcohol intake for family members mostly on special occasions.? Does smoke cigarettes but they were unable to quantify, she does smoke daily, no history of drug use. CODE STATUS:? Full code Allergies:? Penicillin (difficulty breathing) Home Medications:? see Med Rec PHYSICAL EXAM: VS: ?97/50 , heart rate 56??? , 18 respirations , O2 sat 96% on mechanical ventilation, temperature 90.2 F rectally VENT SETTINGS : ?AC 18, 350, 5, 100% ? General:? Unresponsive on a ventilator without any sedation ? Skin:? Slightly mottled in the hypogastric area, bilateral lower extremities, cyanosis of the fingers and toes bilaterally upper and lower extremities. ? HEENT:? Head is normocephalic, atraumatic, pupils are dilated bilaterally at 5 mm without any reactivity, coronary is glossy, no corneal reflex. ?Neck is supple, no JVD or lymphadenopathy, no masses. ? Cardiac: ?Bradycardic 56 beats per minute with distant heart sounds, no murmurs, rubs or gallops. ? Pulmonary:? Diffuse coarseness and rhonchi of the right lower lobe.? No crackles, no rales. ? Abdomen:? Protuberant, positive bowel sounds in all 4 quadrants.? Soft ? Musculoskeletal:? No bony abnormalities, on passive range of motion at the major joints there is no cogwheeling or crepitus, no calf asymmetry or edema of the legs.? left tibial IO. ? Neurologic:? As above otherwise unable to assess Vascular:? 2+ pulses upper and lower extremities distally. ?2nd capillary refill of the bilateral finger and toes, scatter areas of mottled skin with cyanosis of the hands and toes digits. SIGNIFICANT LABORATORY DATA: ?White blood cells are 10.5, hemoglobin 12.8, hematocrit 41.9, platelets 65, INR 1.8.? Sodium 140, potassium 4.9, chloride 107, carbon dioxide 9, anion gap 29, BUN 23, creatinine 2.40 (baseline 0.8), lactic acid 10.4, calcium 7.6, SAT greater than 4202, ALT 4362, total CK 168, troponin 271, albumin 3.0, lipase 187.? Urinalysis negative. ? Urine tox screen positive for cocaine, fentanyl, marijuana.? Respiratory panel negative including COVID. REVIEW OF IMAGES: Chest x-ray impression To my view, the endotracheal tube appears to be 4.5 cm above the kendra.? No pneumothorax.? There is no evidence of infiltrates, possible mild congestive heart failure.? Final reading by radiologist is pending. EKG REVIEW: ?Sinus rhythm rate 88 beats per minute.? No ST elevations, no ST depressions.? evidence of left bundle branch block.? No comparison available. ASSESSMENT: 1. Status post cardiopulmonary arrest 2. Hypoxic/hypercarbic respiratory failure likely in the setting of asthma and CHF provoking the cardiac arrest 3. Metabolic acidosis and lactic acidosis cannot rule out sepsis at this point 4. Asthma exacerbation 5. Acute kidney injury 6. 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 Thrombocytopenia with oral bleeding from known etiology but related to the above 8. Coagulopathy due to the above with INR 1.8 9. Abnormal troponin likely reactive versus primary rule out ACS 10. Morbid obesity 11. Pulmonary edema 12. Polysubstance abuse with positive U tox for fentanyl, cocaine and marijuana (I wonder if this has to do with her cardiopulmonary arrest) PLAN OF CARE: I had a lengthy discussion with family members in the emergency room in regards the patient's current clinical scenario, leading events, multiple comorbidities, quality of live and prognosis.? I answered all of their questions to the best of my abilities in their [place] language is Kisw[place]ili. 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 As they simply do not want her to suffer anymore, they do not want any more invasive procedures and they would rather allow GOD make a decision on her liveand all family members can see her. This information was communicated to the ER physician, the patient will not be transfer to the? ICU and will likely have a terminal extubation performed in the ER.?? I do not CP the patient will passed a better life immediately however if need be in, the patient could go to a LABORATORY MECHANIC HELPER bed on the floor. Clinical update The patient's care had been deescalated, medications had been stopped with section of fentanyl, patient had a terminal extubation and at 11:35. Critical care time used for critical evaluation of this patient, diagnosis, treatment and coordination of care, review her records and documentation TOTAL CRITICAL CARE TIME? 120? MIN . discussion and coordination with consultants, completely separate from any procedures performed. Patient's care was discussed in detail with Dr. Ndiaye.? He is aware of all the above as well as the plan of care for this patient. ? PMFSH Past Medical History Medical History Allergic rhinitis Arthritis Asthma Chronic GERD Essential hypertension Fibromyalgia Heart failure Hypertension Lumbar spondylosis Moderate persistent asthma, uncomplicated Moderate recurrent major depression Pure hypercholesterolemia Family History Family History Father Heart attack Mother Ovarian cancer Family/Other Substance use disorder Mental health disorder Surgical History Surgical History Hx of cholecystectomy Hx of hysterectomy Hx of tubal ligation Social History Social History Household Members: Spouse Housing: Apartment Alcohol intake: current Alcohol intake frequency: holidays/special occasions only Alcohol type: beer Patient Tobacco Use Status: Current everyday Tobacco user Tobacco use type: Cigarette Cigarettes Per Day: 0.5 e-Cigarette/Vaping Use: Never Used Second Hand Smoke Exposure: No Advance Directives: No Advance Directives Information Provided: Yes service: No Current occupational status: disabled Cognitive needs: No Hearing needs: No Vision needs: No Meds Allergies Allergy/AdvReac Type Severity Reaction Status Date / Time Penicillins Allergy Intermediate DIFFICULTY Verified 09/30/22 14:30 BREATHING Active Medications: Current Medications Epinephrine 5 mg/ Dextrose 255 mls @ 0 mls/hr IVCONT .Q0M GUILHERME; Protocol Last Admin: 12/08/22 19:46 Dose: 0.2 mcg/kg/min, 68.05 mls/hr Norepinephrine Bitartrate (Levophed) 8 mg in 250 mls @ 0 mls/hr IV .Q0M GUILHERME; Protocol Last Titration: 12/08/22 20:09 Dose: 0.2 mcg/kg/min, 41.7 mls/hr Propofol (Diprivan) 1,000 mg in 100 mls @ 0 mls/hr IVCONT .Q0M GUILHERME; Protocol Last Admin: 12/08/22 19:42 Dose: 40 mcg/kg/min, 26.69 mls/hr Fentanyl (Sublimaze/Ns) 1,000 mcg in 100 mls @ 0 mls/hr IVCONT .Q0M GUILHERME; Protocol Physical Exam Vital Signs: Vital Signs: Last Vital Signs Temp 90.1 F L 12/08/22 20:26 Pulse 57 12/08/22 20:26 Resp 18 12/08/22 20:26 BP 208/73 H 12/08/22 20:26 Pulse Ox 92 12/08/22 20:26 O2 Del Method 12/08/22 20:26 FiO2 80 12/08/22 19:55 BMI result Body Mass Index 44.8 Results Labs 12/08/22 19:32 12/08/22 19:32 Labs: Short CBC 12/08/22 Range/Units 19:32 WBC 13.5 H (4.8-10.8) X10*3/uL Hgb 12.8 (12.0-16.0) g/dl Hct 41.9 (37.0-47.0) % Plt Count 65 L D (160-400) X10*3/uL BMP 12/08/22 19:32 Sodium 140 Potassium 4.9 Chloride 107 Carbon Dioxide 9 L* D BUN 23 H Creatinine 2.40 H Calcium 7.6 L D Cardiac Enzymes 12/08/22 Range/Units 19:32 Total Creatine Kinase 168 H (26-140) U/L Liver Function 12/08/22 Range/Units 19:32 Total Bilirubin 0.9 (0.0-1.0) mg/dL AST > 4202 H (5-31) U/L ALT 4362 H (0-31) U/L Alkaline Phosphatase 187 H (39-117) U/L Albumin 3.0 L (3.5-5.0) g/dL Urine 12/08/22 Range/Units 19:31 Urine Color Yellow Urine Appearance Clear Urine pH 5.0 (5.0-9.0) Ur Specific Victor 1.010 (1.005-1.025) Urine Protein 100 (2+) H (Neg-Trace) mg/dL Urine Glucose (UA) 500 H (Negative) mg/dL Assessment and Plan Time Spent With Patient Time: Total time managing care of this patient today ____ minutes.
--- NOTE | 2022-12-08 21:32 | PC.NURSE ---
BP 207/95 MAP 132 HR 61. Norepi and epi paused at this time. MLP Keyshawn PA aware.
--- NOTE | 2022-12-08 21:39 | PC.NURSE ---
Epinephrine running at 0.2mcg. Norepi running at 0.2mcg. Propofol running at 40mcg. BP 126/66 MAP 86 HR 57. MD aware 02 @ 60%. O2 sat 86%. Respiratory therapist aware.
[2022-12-08 21:41] LABS: Reflex Lactate? Lactic Acid Added
--- NOTE | 2022-12-08 22:25 | PC.NURSE ---
Family at bedside and aware of plan. Pt continues to be on Epi 0.2 mcg and Propofol 40mcg as ordered. Comfort care in place. Will continue to monitor.
[2022-12-08] MEDS: fentaNYL citrate/NS 1,000 MCG/100 ML PLAST..BAG 10 MCG IVCONT (23:15)
[2022-12-08] MEDS: fentaNYL citrate/PF 100 MCG/2 ML VIAL 200 MCG IVPUSH (23:16)
--- NOTE | 2022-12-08 23:18 | PC.NURSE ---
Propofol stopped. Fentanyl administered as ordered. Pt extubated as ordered. Pt is unarousable at this time. MD asencio
[2022-12-08 23:42] LABS: Amphetamine Screen Urine Not Detected (Not Detect); Barbiturates, Urine Not Detected (Not Detect); Benzodiazepines Screen Urine Not Detected (Not Detect); Cannabinoid Screen Urine POSITIVE (Not Detect); Cocaine Screen Urine POSITIVE (Not Detect); Fentanyl, urine POSITIVE (Not Detect); Opiate Screen Urine Not Detected (Not Detect); Phencyclidine Screen Urine Not Detected (Not Detect)
--- NOTE | 2022-12-08 23:50 | PC.NURSE ---
[facility] notified. Referral declined.
[2022-12-09 01:10] LABS: ABG Refer to POC result
--- NOTE | 2022-12-09 01:19 | PC.NURSE ---
Family at bedside obtained pts belongings. Pt tagged and transferred to the [facility] [place] [place].
== END 2022-12-09 01:23 | disposition expired ==
PROVIDERS: Emergency Provider Emergency Medicine Emergency Medical Services
DX: I46.9 Cardiac arrest, cause unspecified (principal); J69.0 Pneumonitis due to inhalation of food and vomit; J96.01 Acute respiratory failure with hypoxia; Z20.822 Contact with and (suspected) exposure to COVID-19; Z20.828 Contact with and (suspected) exposure to other viral communicable diseases; I11.0 Hypertensive heart disease with heart failure; I50.9 Heart failure, unspecified; E78.00 Pure hypercholesterolemia, unspecified; K21.9 Gastro-esophageal reflux disease without esophagitis; J45.909 Unspecified asthma, uncomplicated; M79.7 Fibromyalgia; I44.7 Left bundle-branch block, unspecified; I35.0 Nonrheumatic aortic (valve) stenosis; F17.210 Nicotine dependence, cigarettes, uncomplicated; Z90.49 Acquired absence of other specified parts of digestive tract; Z90.710 Acquired absence of both cervix and uterus; Z98.51 Tubal ligation status; Z79.899 Other long term (current) drug therapy; Z79.02 Long term (current) use of antithrombotics/antiplatelets
CPT/HCPCS: 0241U; 31500; 36415; 51701; 71045; 80053; 80307; 81001; 82077; 82550; 82803; 82947; 83605; 83690; 84484; 85007; 85025; 85027; 85610; 85730; 87040; 87205; 93005; 94002; 96365; 96366; 96367; 96375; 99284; 99285; J0171; J0692; J3010